=== PATIENT | female | born 1965 | race Caucasian/White ===

== ENCOUNTER 2022-10-26 09:02 | Outpatient (OUT) | payer OTHER, SELFPAY ==
--- NOTE | 2022-10-26 09:06 | MM_ITS ---
Patient: FLAKITO KHAN Exam Date: 10/26/2022 : 1965 Gender:F Ordering : DR Viraj Martinez D.O. Admission #: [id number] Family : Order #: [id number] CLICK HERE TO VIEW EXAM RADIOLOGY REPORT PROCEDURE: MM TOMOSYNTHESIS SCREENING BI COMPARISON: None. INDICATIONS: Screening Calculator Name NCI Breast Cancer Risk Assessment Tool 5 Year Breast Cancer Risk 1.30% Lifetime Breast Cancer Risk 8.00% Personal Breast Cancer No Personal Ovarian Cancer No Treatments None Family Cancers None LOCATION: The [facility] BREAST COMPOSITION: Almost entirely fatty. FINDINGS: DIAGNOSTIC CATEGORY 2--BENIGN FINDING: RIGHT BREAST: No significant suspicious finding. Benign-appearing lymph node present. LEFT BREAST: No significant suspicious finding. RECOMMENDATIONS: ROUTINE MAMMOGRAM AND CLINICAL EVALUATION IN 12 MONTHS. PLEASE NOTE: A NORMAL MAMMOGRAM DOES NOT EXCLUDE THE POSSIBILITY OF BREAST CANCER. A CLINICALLY SUSPICIOUS PALPABLE LUMP SHOULD BE BIOPSIED. Dictated by: Lavelle Cowan M.D. on 10/28/2022 at 08:56 Approved by: Lavelle Cowan M.D. on 10/28/2022 at 08:59
== END 2022-10-26 09:03 | disposition home or self-care (01) ==
LOC: MAMMO 09:02
PROVIDERS: PCP Internal Medicine; Visit Provider Internal Medicine
DX: Z12.31 Encounter for screening mammogram for malignant neoplasm of breast (principal)
CPT/HCPCS: 77063; 77067

== ENCOUNTER 2023-09-08 20:48 | Emergency (ER) | payer OTHER, SELFPAY ==
[2023-09-08] VITALS (22 sets, daily range): BP systolic 101–149; BP diastolic 78–97; PULSE 105–130; TEMP 37.4; O2SAT 94–99; BMI 34.9
--- NOTE | 2023-09-08 21:00 | CT_ITS ---
The [address] [address] Patient Name: FLAKITO KHAN MRN: [id number] date: 1965 Sex: F Assigned Patient Location: ED.MAIN Current Patient Location: Accession/Order Number: [id number] Exam Date: 09/08/2023 21:40 Report Date: 09/08/2023 23:37 At the request of: KANDIS SANCHEZ Procedure: CT head/brain wo con INDICATION: 57 years old; Female. Headache. Vomiting. TECHNIQUE: CT Head (ax/cor/sag reformats). Ionizing radiation dose reduced via iterative reconstruction/FBP blend and body size kV/mA adjustment. Comparison: None FINDINGS: POSTOPERATIVE CHANGES: None. BRAIN PARENCHYMA: No intraparenchymal or extra-axial hemorrhage. No mass effect. No midline shift or herniation. Normal koenig/white differentiation. VENTRICLES/EXTRA-AXIAL SPACES: Normal for patient's age. SINUSES/MASTOIDS: Sinuses are clear although the maxillary sinuses are not completely included. Nasal septal deviation to the right with spur formation. Mastoids and middle ears are clear. MSK: No displaced or depressed calvarial fracture. Mild extracranial soft tissue swelling in the right frontal region. OTHER: No hyperdense intraluminal thrombus. CT/CT head/brain wo con IMPRESSION: 1. No acute intracranial abnormality. No hemorrhage or mass effect. Electronically authenticated by: KELLY VALLE Date: 09/08/2023 23:37
--- NOTE | 2023-09-08 21:00 | ECG_ITS ---
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
--- NOTE | 2023-09-08 21:00 | XR_ITS ---
The [address] [address] Patient Name: FLAKITO KHAN MRN: [id number] date: 1965 Sex: F Assigned Patient Location: ER Current Patient Location: ER Accession/Order Number: [id number] Exam Date: 09/08/2023 22:40 Report Date: 09/08/2023 23:46 At the request of: KANDIS SANCHEZ Procedure: XR chest 1V EXAM: XR chest 1V HISTORY: Vomiting, weakness. COMPARISON: None. TECHNIQUE: AP upright portable. FINDINGS: Lordotic positioning. Diminished lung volumes. Mild elevation of the right hemidiaphragm. Allowing for diminished lung volumes and lordotic positioning, which accentuates the cardiomediastinal contour, the heart and pulmonary vasculature are within normal limits. The costophrenic angles are clear. XR/XR chest 1V IMPRESSION: Diminished lung volumes. Electronically authenticated by: LOPEZ QUISPE Date: 09/08/2023 23:46
--- NOTE | 2023-09-08 21:02 | ED.GENADUL1 ---
Documented by User: ANAND Yang 09/08/23 21:37 HPI HPI - General Adult General Chief complaint: Nausea/Vomiting/Diarrhea Stated complaint: General Weakness Time Seen by Provider: 09/08/23 20:51 Source: patient Mode of arrival: Wheelchair Limitations: no limitations History of Present Illness HPI narrative: Patient is a 57-year-old female who presents to the emergency department from home for the evaluation of general weakness and not feeling well over the last week. She reports a history of type 2 diabetes controlled with medication orally, she does not use insulin. She has no other major medical problems. She has not had any objective fevers. She reports headaches associated with vomiting. She states she has had loose stool when she is forcefully vomiting but has had no persistent diarrhea or urinary symptoms. She has no chest pain. She states she is short of breath when she gets up and moves around as she feels generally weak and has not been eating and drinking well this week. She denies chest pain, abdominal pain. No medications taken prior to arrival. She has no significant cough, congestion. She reports some generalized bodyaches. No sick contacts in the home. Patient also reports today she noticed numbness in the palm of her right hand. Related Data Home Medications ?Medication ?Instructions ?Recorded ?Confirmed glimepiride 1 mg tablet 1 mg PO DAILY 09/08/23 09/08/23 Allergies Allergy/AdvReac Type Severity Reaction Status Date / Time No Known Drug Allergies Allergy Verified 09/08/23 20:55 Opioid HPI Opioid Management Most Recent Opioid Data: No Data to Display Review of Systems ROS Constitutional Denies: fever or chills Eyes Denies: change in vision Ears, nose, mouth, and throat Denies: throat pain Cardiovascular Denies: chest pain Respiratory Reports: shortness of breath; Denies: cough Gastrointestinal Reports: nausea and vomiting; Denies: abdominal pain Musculoskeletal Denies: back pain or neck pain Integumentary/Breast Denies: rash Neurological Reports: headache and numbness in extremities; Denies: dizziness Hematologic/Lymphatic Denies: easy bruising or easy bleeding Exam Narrative Exam Narrative: Gen.: Awake, alert, in no distress Head: Normocephalic, atraumatic ENT: Moist mucous membranes Respiratory: No respiratory distress, lungs clear bilaterally Cardio: Regular rate and rhythm Gastrointestinal: Abdomen is soft, nondistended and nontender to palpation Extremities: Moves extremities equally, no injuries noted; Normal inspector open die strength in the bilateral hands, normal biceps tendon strength bilaterally in the upper extremities. Psych: Normal mood and affect Neuro: No focal neuro deficit; No unilateral weakness, clear speech, awake and alert and oriented. Skin: Warm, dry, intact Constitutional Vital Signs, click to edit/add: Last Vital Signs Temp 99.3 F 09/08/23 20:51 Pulse 109 H 09/08/23 23:50 Resp 24 H 09/08/23 23:50 BP 116/78 09/08/23 23:30 Pulse Ox 95 09/08/23 23:50 O2 Del Method Room Air 09/08/23 20:51 Course Vital Signs Vital signs: Vital Signs Temperature 99.3 F 09/08/23 20:51 Pulse Rate 120 H 09/08/23 20:51 Respiratory Rate 18 09/08/23 20:51 Blood Pressure 149/97 H 09/08/23 20:51 Pulse Oximetry 98 09/08/23 20:51 Oxygen Delivery Method Room Air 09/08/23 20:51 Temperature 99.3 F 09/08/23 20:51 Pulse Rate 109 H 09/08/23 23:50 Respiratory Rate 24 H 09/08/23 23:50 Blood Pressure 116/78 09/08/23 23:30 Pulse Oximetry 95 09/08/23 23:50 Oxygen Delivery Method Room Air 09/08/23 20:51 Medical Decision Making MDM Narrative Medical decision making narrative: 2136: Sepsis orders were obtained for the patient, she was given IV fluids for tachycardia, Zofran for vomiting. She was ordered to have a CT of the head and chest x-ray in addition to COVID testing, blood cultures. Her CBC resulted showing a white blood cell count of 27.8. CT of the abdomen pelvis will be added to rule out abdominal pathology causing the vomiting and the leukocytosis. Case is turned over to attending physician at this time for disposition. SHARED APC VISIT, PHYSICIAN ATTESTATION: [id number] I performed a substantive part of the MDM during the patient?s E/M visit. I personally evaluated and examined the patient. I personally made or approved the documented management plan and acknowledge its risk of complications. Medical Records Medical records reviewed: Yes I reviewed the patient's medical records Lab Data Lab results reviewed: Yes I reviewed the patient's lab results Labs: Lab Results 09/08/23 09/09/23 Range/Units 21:10 00:20 WBC 27.8 H (4.0-11.0) 10^3/uL RBC 5.11 (4.20-5.40) 10^6/uL Hgb 13.8 (12.0-16.0) g/dL Hct 42.6 (36.0-48.0) % MCV 83.4 (81.0-99.0) fL MCH 27.0 (26.7-34.0) pg MCHC 32.4 (29.9-35.2) g/dL RDW 12.2 (11.0-15.0) % Plt Count 463 H (150-450) 10^3/uL MPV 11.0 (9.5-13.5) fL Seg Neuts % (Manual) 85.0 Band Neutrophils % 1.0 (0-5) % Lymphocytes % (Manual) 6.0 L (20.5-60.0) % Atypical Lymphs % (Man) 2.0 % Monocytes % (Manual) 6.0 (1.7-12.0) % Eosinophils % (Manual) 0.0 L (0.9-7.0) % Basophils % (Manual) 0.0 L (0.2-2.0) % Neutrophils # (Manual) 23.63 H (1.4-6.5) 10^3/uL Band Neutrophils # 0.3 (0.0-0.3) 10^3/uL Lymphocytes # (Manual) 1.66 (1.20-3.80) 10^3/uL Abs Atypical Lymphs Man 0.55 Monocytes # (Manual) 1.66 H (0.30-0.80) 10^3/uL Eosinophils # (Manual) 0.00 (0.00-0.70) 10^3/uL Basophils # (Manual) 0.00 (0.00-0.10) 10^3/uL D-Dimer 1.69 H* (<=0.59) mg/L FEU VBG pH 7.427 (7.330-7.430) VBG pCO2 33.4 L (40.0-52.0) mmHg Sodium 128 L (136-145) mmol/L Potassium 4.0 (3.5-5.1) mmol/L Chloride 92 L (98-107) mmol/L Carbon Dioxide 21.5 (21.0-32.0) mmol/L Anion Gap 18.5 BUN 13.0 (7.0-18.0) mg/dL Creatinine 1.09 H (0.55-1.02) mg/dL Est GFR ( Amer) >60 (>=60) Est GFR (Non-Af Amer) 52 L (>=60) BUN/Creatinine Ratio 11.9 Glucose 387 H (74-106) mg/dL Lactate 4.2 H* 1.7 (0.4-2.0) mmol/L Calcium 9.6 (8.5-10.1) mg/dL Total Bilirubin 1.8 H (0.2-1.0) mg/dL AST 20 (15-37) U/L ALT 23 (14-59) U/L Alkaline Phosphatase 136 H (46-116) U/L Troponin I High Sens <4.0 L (4.0-51.3) pg/mL Total Protein 7.8 (6.4-8.2) g/dL Albumin 2.3 L (3.4-5.0) g/dL Globulin 5.5 g/dL Albumin/Globulin Ratio 0.4 Procalcitonin 0.84 H (0.00-0.50) ng/mL SARS-CoV-2 Ag (CV2AG) Negative (NEGATIVE) ECG Data Attestation: I personally reviewed and interpreted this ECG as follows: (Sinus tachycardia at a rate of 125, no acute ST elevation. T wave inversion in lead III, no ectopy. EKG reviewed by attending physician) Discharge Plan Discharge Chief Complaint: Nausea/Vomiting/Diarrhea Clinical Impression: Necrotizing fasciitis Patient Disposition: [facility] Time of Disposition Decision: 00:47 Discharge location: [facility] Condition: Serious Documented by User: Jeni Willis MD 09/09/23 01:44 HPI HPI - General Adult General Chief complaint: Nausea/Vomiting/Diarrhea Stated complaint: General Weakness Time Seen by Provider: 09/08/23 20:51 Related Data Home Medications ?Medication ?Instructions ?Recorded ?Confirmed glimepiride 1 mg tablet 1 mg PO DAILY 09/08/23 09/08/23 Allergies Allergy/AdvReac Type Severity Reaction Status Date / Time No Known Drug Allergies Allergy Verified 09/08/23 20:55 Opioid HPI Opioid Management Most Recent Opioid Data: No Data to Display Exam Constitutional Vital Signs, click to edit/add: Last Vital Signs Temp 99.3 F 09/08/23 20:51 Pulse 109 H 09/08/23 23:50 Resp 24 H 09/08/23 23:50 BP 116/78 09/08/23 23:30 Pulse Ox 95 09/08/23 23:50 O2 Del Method Room Air 09/08/23 20:51 Course Vital Signs Vital signs: Vital Signs Temperature 99.3 F 09/08/23 20:51 Pulse Rate 120 H 09/08/23 20:51 Respiratory Rate 18 09/08/23 20:51 Blood Pressure 149/97 H 09/08/23 20:51 Pulse Oximetry 98 09/08/23 20:51 Oxygen Delivery Method Room Air 09/08/23 20:51 Temperature 99.3 F 09/08/23 20:51 Pulse Rate 109 H 09/08/23 23:50 Respiratory Rate 24 H 09/08/23 23:50 Blood Pressure 116/78 09/08/23 23:30 Pulse Oximetry 95 09/08/23 23:50 Oxygen Delivery Method Room Air 09/08/23 20:51 Medical Decision Making MDM Narrative Medical decision making narrative: 2136: Sepsis orders were obtained for the patient, she was given IV fluids for tachycardia, Zofran for vomiting. She was ordered to have a CT of the head and chest x-ray in addition to COVID testing, blood cultures. Her CBC resulted showing a white blood cell count of 27.8. CT of the abdomen pelvis will be added to rule out abdominal pathology causing the vomiting and the leukocytosis. Case is turned over to attending physician at this time for disposition. SHARED APC VISIT, PHYSICIAN ATTESTATION: [id number] I performed a substantive part of the MDM during the patient?s E/M visit. I personally evaluated and examined the patient. I personally made or approved the documented management plan and acknowledge its risk of complications. This patient was seen and evaluated in conjunction with the physician housekeeper/laundry assistant. Please refer to her full H&P. Patient was seen and evaluated by myself. She states she has been having nausea with some vomiting without significant abdominal pain. I discussed the results of her labs with her and told her that she has a markedly elevated white count. She then told me that that is probably because she has a boil and points to her right inguinal area. At that point I had the patient remove her pants and found that she has a large red indurated tender area from the right inguinal area to the right mid medial thigh area that measures approximately 15 cm x 19 cm. She states that she has had this for approximately 1 week. She states she has had it before and it comes and goes. She states she has been putting a Band-Aid over it and it has been draining some koenig material. I was unable to express any drainage from the area to culture. The indurated area does not include her labia and does not involve the rectum. CT scan of the chest abdomen pelvis was ordered. CT scan of the chest shows mosaic attenuation to the lungs which can be seen in small airways disease. Cholelithiasis without evidence of acute inflammation hepatosplenomegaly with hepatic steatosis prominent enlarged portacaval lymph nodes and prominent enlarged right inguinal lymph nodes as well as air in the soft tissues of the medial right thigh with surrounding edema and skin thickening. The area extends into the right gracilis muscles findings are in keeping with a necrotizing infection. CT scan of the brain was negative for acute findings. Chest x-ray was also normal. Case was discussed with Gen Izabel Conner at [facility] and she will be admitted to the hospitalist service with surgery consult tomorrow am. Case discussed with WOOD DOWEL MACHINE OPERATOR/Hospitalist and she is accepted for transfer to the service of Dr Aguero. Critical care time 45 minutes The [address] [address] XRay Report Signed Patient: FLAKITO KHAN MR#: [id number] : 1965 Acct:[id number] Age/Sex: 57 / F ADM Date: 09/08/23 Loc: ER Attending Dr: Ordering Physician: Kandis Sanchez Date of Service: 09/08/23 Procedure(s): XR chest 1V Accession Number(s): [id number] cc: Viraj Martinez D.O.; Kandis Sanchez~ The [address] [id number] Patient Name: FLAKITO KHAN MRN: [id number] date: 1965 Sex: F Assigned Patient Location: ER Current Patient Location: ER Accession/Order Number: [id number] Exam Date: 09/08/2023 22:40 Report Date: 09/08/2023 23:46 At the request of: KANDIS SANCHEZ Procedure: XR chest 1V EXAM: XR chest 1V HISTORY: Vomiting, weakness. COMPARISON: None. TECHNIQUE: AP upright portable. FINDINGS: Lordotic positioning. Diminished lung volumes. Mild elevation of the right hemidiaphragm. Allowing for diminished lung volumes and lordotic positioning, which accentuates the cardiomediastinal contour, the heart and pulmonary vasculature are within normal limits. The costophrenic angles are clear. XR/XR chest 1V IMPRESSION: Diminished lung volumes. Electronically authenticated by: LOPEZ QUISPE Date: 09/08/2023 23:46 [place] [address] CT Scan Report Signed Patient: FLAKITO KHAN MR#: [id number] : 1965 Acct:[id number] Age/Sex: 57 / F ADM Date: 09/08/23 Loc: ER Attending Dr: Ordering Physician: Kandis Sanchez Date of Service: 09/08/23 Procedure(s): CT head/brain wo con Accession Number(s): [id number] cc: Viraj Martinez D.O.~ The [address] [address] Patient Name: FLAKITO KHAN MRN: [id number] date: 1965 Sex: F Assigned Patient Location: ED.MAIN Current Patient Location: ER Accession/Order Number: [id number] Exam Date: 09/08/2023 21:40 Report Date: 09/08/2023 23:37 At the request of: KANDIS SANCHEZ Procedure: CT head/brain wo con INDICATION: 57 years old; Female. Headache. Vomiting. TECHNIQUE: CT Head (ax/cor/sag reformats). Ionizing radiation dose reduced via iterative reconstruction/FBP blend and body size kV/mA adjustment. Comparison: None FINDINGS: POSTOPERATIVE CHANGES: None. BRAIN PARENCHYMA: No intraparenchymal or extra-axial hemorrhage. No mass effect. No midline shift or herniation. Normal koenig/white differentiation. VENTRICLES/EXTRA-AXIAL SPACES: Normal for patient's age. SINUSES/MASTOIDS: Sinuses are clear although the maxillary sinuses are not completely included. Nasal septal deviation to the right with spur formation. Mastoids and middle ears are clear. MSK: No displaced or depressed calvarial fracture. Mild extracranial soft tissue swelling in the right frontal region. OTHER: No hyperdense intraluminal thrombus. CT/CT head/brain wo con IMPRESSION: 1. No acute intracranial abnormality. No hemorrhage or mass effect. Electronically authenticated by: KELLY VALLE Date: 09/08/2023 23:37 [place] [address] CT Scan Report Signed Patient: FLAKITO KHAN MR#: [id number] : 1965 Acct:[id number] Age/Sex: 57 / F ADM Date: 09/08/23 Loc: ER Attending Dr: Ordering Physician: Kandis Sanchez Date of Service: 09/08/23 Procedure(s): CT abdomen pelvis w con Accession Number(s): [id number] cc: Viraj Martinez D.O.~ The [place] [id number] Patient Name: FLAKITO KHAN MRN: [id number] date: 1965 Sex: F Assigned Patient Location: ER Current Patient Location: ER Accession/Order Number: [id number] Exam Date: 09/08/2023 21:40 Report Date: 09/08/2023 23:51 At the request of: KANDIS SANCHEZ Procedure: CT abdomen pelvis w con EXAM: CT angio chest, CT abdomen pelvis w con HISTORY: SOB, elevated d dimer COMPARISON: None. TECHNIQUE: Axial CT angiographic images through the chest were obtained after the intravenous administration of contrast. Coronal and sagittal reformats were obtained. Axial CT images through the abdomen and pelvis were then obtained with coronal and sagittal reformats. Dose reduction techniques were achieved by using automated exposure control and/or adjustment of mA and/or kV according to patient size and/or use of iterative reconstruction technique. FINDINGS: Chest: There is a mosaic attenuation to the lungs. No evidence of a pulmonary embolism is seen though the examination is not well-timed for evaluation of pulmonary embolus. There is no axillary, mediastinal, or hilar lymphadenopathy. There is no pleural or pericardial fluid. The heart size is normal. Abdomen: The liver and spleen enhance homogeneously without focal lesion. There is no intra or extrahepatic biliary duct dilatation. There is cholelithiasis without evidence of acute inflammation. There is hepatic steatosis. There is hepatomegaly with the liver measuring up to 23.1 cm at the right midclavicular line. The spleen is enlarged measuring up to 15.7 cm. The pancreas, adrenal glands, kidneys, and bowel loops, including the appendix, are unremarkable. There are prominent and enlarged portacaval lymph nodes measuring up to 1.3 cm in short axis diameter (series 5, image 74). Pelvis: The bladder and rectum are unremarkable. The uterus is present. The ovaries appear within normal limits by CT. There are prominent and enlarged right inguinal lymph nodes measuring up to 1.0 cm in short axis diameter (series 5, image 194). Bone windows show no aggressive osseous lesions. There is mild atherosclerotic disease. Air is seen within the soft tissues of the medial right thigh with surrounding edema and skin thickening. There is extension of the air into the right gracilis muscle which is asymmetrically thickened. CT/CT abdomen pelvis w con IMPRESSION: 1. Air within the soft tissues of the medial right thigh with surrounding edema and skin thickening. Air extends into the right gracilis muscle. These findings are likely in keeping with a necrotizing infection. 2. Mosaic attenuation to the lungs which can be seen with small airways disease. 3. Cholelithiasis without evidence of acute inflammation. 4. Hepatosplenomegaly with hepatic steatosis. 5. Prominent and enlarged portal caval lymph nodes, likely reactive. 6. Prominent and enlarged right inguinal lymph nodes, also likely reactive. Electronically authenticated by: Lucia MEJIAS Date: 09/08/2023 23:51 Lab Data Lab results reviewed: Yes I reviewed the patient's lab results Labs: Lab Results 09/08/23 09/09/23 Range/Units 21:10 00:20 WBC 27.8 H (4.0-11.0) 10^3/uL RBC 5.11 (4.20-5.40) 10^6/uL Hgb 13.8 (12.0-16.0) g/dL Hct 42.6 (36.0-48.0) % MCV 83.4 (81.0-99.0) fL MCH 27.0 (26.7-34.0) pg MCHC 32.4 (29.9-35.2) g/dL RDW 12.2 (11.0-15.0) % Plt Count 463 H (150-450) 10^3/uL MPV 11.0 (9.5-13.5) fL Seg Neuts % (Manual) 85.0 Band Neutrophils % 1.0 (0-5) % Lymphocytes % (Manual) 6.0 L (20.5-60.0) % Atypical Lymphs % (Man) 2.0 % Monocytes % (Manual) 6.0 (1.7-12.0) % Eosinophils % (Manual) 0.0 L (0.9-7.0) % Basophils % (Manual) 0.0 L (0.2-2.0) % Neutrophils # (Manual) 23.63 H (1.4-6.5) 10^3/uL Band Neutrophils # 0.3 (0.0-0.3) 10^3/uL Lymphocytes # (Manual) 1.66 (1.20-3.80) 10^3/uL Abs Atypical Lymphs Man 0.55 Monocytes # (Manual) 1.66 H (0.30-0.80) 10^3/uL Eosinophils # (Manual) 0.00 (0.00-0.70) 10^3/uL Basophils # (Manual) 0.00 (0.00-0.10) 10^3/uL D-Dimer 1.69 H* (<=0.59) mg/L FEU VBG pH 7.427 (7.330-7.430) VBG pCO2 33.4 L (40.0-52.0) mmHg Sodium 128 L (136-145) mmol/L Potassium 4.0 (3.5-5.1) mmol/L Chloride 92 L (98-107) mmol/L Carbon Dioxide 21.5 (21.0-32.0) mmol/L Anion Gap 18.5 BUN 13.0 (7.0-18.0) mg/dL Creatinine 1.09 H (0.55-1.02) mg/dL Est GFR ( Amer) >60 (>=60) Est GFR (Non-Af Amer) 52 L (>=60) BUN/Creatinine Ratio 11.9 Glucose 387 H (74-106) mg/dL Lactate 4.2 H* 1.7 (0.4-2.0) mmol/L Calcium 9.6 (8.5-10.1) mg/dL Total Bilirubin 1.8 H (0.2-1.0) mg/dL AST 20 (15-37) U/L ALT 23 (14-59) U/L Alkaline Phosphatase 136 H (46-116) U/L Troponin I High Sens <4.0 L (4.0-51.3) pg/mL Total Protein 7.8 (6.4-8.2) g/dL Albumin 2.3 L (3.4-5.0) g/dL Globulin 5.5 g/dL Albumin/Globulin Ratio 0.4 Procalcitonin 0.84 H (0.00-0.50) ng/mL SARS-CoV-2 Ag (CV2AG) Negative (NEGATIVE) Discharge Plan Discharge Chief Complaint: Nausea/Vomiting/Diarrhea Clinical Impression: Necrotizing fasciitis Patient Disposition: [facility] Time of Disposition Decision: 00:47 Discharge location: [facility] Condition: Serious
[2023-09-08] MEDS: ONDANSETRON PF 4 MG/2 ML VIAL IV (21:11)
[2023-09-08] MEDS: 0.9 % SODIUM CHLORIDE 1,000 ML 1000 ML IV (21:11)
[2023-09-08 21:26] LABS: PCO2 VBG 33.4 mmHg (40.0-52.0); pH VBG 7.427 (7.330-7.430)
[2023-09-08 21:28] LABS: Hematocrit 42.6 % (36.0-48.0); Hemoglobin 13.8 g/dL (12.0-16.0); Mean Corpuscular HGB Conc 32.4 g/dL (29.9-35.2); Mean Corpuscular Volume 83.4 fL (81.0-99.0); Platelet Count 463 10^3/uL (150-450); Red Blood Count 5.11 10^6/uL (4.20-5.40); Red Cell Distribution Width 12.2 % (11.0-15.0); White Blood Count 27.8 10^3/uL (4.0-11.0)
--- NOTE | 2023-09-08 21:35 | CT_ITS ---
The [address] [address] Patient Name: FLAKITO KHAN MRN: [id number] date: 1965 Sex: F Assigned Patient Location: ER Current Patient Location: Accession/Order Number: [id number] Exam Date: 09/08/2023 21:40 Report Date: 09/08/2023 23:51 At the request of: KANDIS SANCHEZ Procedure: CT abdomen pelvis w con EXAM: CT angio chest, CT abdomen pelvis w con HISTORY: SOB, elevated d dimer COMPARISON: None. TECHNIQUE: Axial CT angiographic images through the chest were obtained after the intravenous administration of contrast. Coronal and sagittal reformats were obtained. Axial CT images through the abdomen and pelvis were then obtained with coronal and sagittal reformats. Dose reduction techniques were achieved by using automated exposure control and/or adjustment of mA and/or kV according to patient size and/or use of iterative reconstruction technique. FINDINGS: Chest: There is a mosaic attenuation to the lungs. No evidence of a pulmonary embolism is seen though the examination is not well-timed for evaluation of pulmonary embolus. There is no axillary, mediastinal, or hilar lymphadenopathy. There is no pleural or pericardial fluid. The heart size is normal. Abdomen: The liver and spleen enhance homogeneously without focal lesion. There is no intra or extrahepatic biliary duct dilatation. There is cholelithiasis without evidence of acute inflammation. There is hepatic steatosis. There is hepatomegaly with the liver measuring up to 23.1 cm at the right midclavicular line. The spleen is enlarged measuring up to 15.7 cm. The pancreas, adrenal glands, kidneys, and bowel loops, including the appendix, are unremarkable. There are prominent and enlarged portacaval lymph nodes measuring up to 1.3 cm in short axis diameter (series 5, image 74). Pelvis: The bladder and rectum are unremarkable. The uterus is present. The ovaries appear within normal limits by CT. There are prominent and enlarged right inguinal lymph nodes measuring up to 1.0 cm in short axis diameter (series 5, image 194). Bone windows show no aggressive osseous lesions. There is mild atherosclerotic disease. Air is seen within the soft tissues of the medial right thigh with surrounding edema and skin thickening. There is extension of the air into the right gracilis muscle which is asymmetrically thickened. CT/CT abdomen pelvis w con IMPRESSION: 1. Air within the soft tissues of the medial right thigh with surrounding edema and skin thickening. Air extends into the right gracilis muscle. These findings are likely in keeping with a necrotizing infection. 2. Mosaic attenuation to the lungs which can be seen with small airways disease. 3. Cholelithiasis without evidence of acute inflammation. 4. Hepatosplenomegaly with hepatic steatosis. 5. Prominent and enlarged portal caval lymph nodes, likely reactive. 6. Prominent and enlarged right inguinal lymph nodes, also likely reactive. Electronically authenticated by: Lucia MEJIAS Date: 09/08/2023 23:51
[2023-09-08 21:37] LABS: Internal Control Within Normal Limits; SARS-CoV-2 Ag NEGATIVE (NEGATIVE)
[2023-09-08 21:45] LABS: Atypical Lymphocytes Abs Man 0.55; Band Neutrophils Absolute 0.3 10^3/uL (0.0-0.3); Lymphocytes Absolute Manual 1.66 10^3/uL (1.20-3.80); Monocytes Absolute Manual 1.66 10^3/uL (0.30-0.80); Segmented Neut Absolute Manual 23.63 10^3/uL (1.4-6.5)
[2023-09-08 21:49] LABS: Alanine Aminotransferase 23 U/L (14-59); Albumin Globulin Ratio 0.4; Albumin Level 2.3 g/dL (3.4-5.0); Alkaline Phosphatase 136 U/L (46-116); Anion Gap 18.5; Aspartate Amino Transferase 20 U/L (15-37); BUN Creatinine Ratio 11.9; Bilirubin Total 1.8 mg/dL (0.2-1.0); Calcium 9.6 mg/dL (8.5-10.1); Carbon Dioxide 21.5 mmol/L (21.0-32.0); Chloride 92 mmol/L (98-107); Estimated GFR (African America >60 (>=60); Estimated GFR (Non-African Ame 52 (>=60); Globulin 5.5 g/dL; Glucose 387 mg/dL (74-106); Sodium 128 mmol/L (136-145); Total Protein 7.8 g/dL (6.4-8.2); Troponin I High Sensitivity <4.0 pg/mL (4.0-51.3)
[2023-09-08 21:54] LABS: Lactate/Lactic Acid 4.2 mmol/L (0.4-2.0)
[2023-09-08 21:56] LABS: PROCALCITONIN 0.84 ng/mL (0.00-0.50)
[2023-09-08 22:20] LABS: D Dimer 1.69 mg/L FEU (<=0.59)
--- NOTE | 2023-09-08 22:23 | CT_ITS ---
[address] [address] Patient Name: FLAKITO KHAN MRN: [id number] date: 1965 Sex: F Assigned Patient Location: ER Current Patient Location: ER Accession/Order Number: [id number] Exam Date: 09/08/2023 21:40 Report Date: 09/08/2023 23:51 At the request of: SAGAR MARKER Procedure: CT angio chest EXAM: CT angio chest, CT abdomen pelvis w con HISTORY: SOB, elevated d dimer COMPARISON: None. TECHNIQUE: Axial CT angiographic images through the chest were obtained after the intravenous administration of contrast. Coronal and sagittal reformats were obtained. Axial CT images through the abdomen and pelvis were then obtained with coronal and sagittal reformats. Dose reduction techniques were achieved by using automated exposure control and/or adjustment of mA and/or kV according to patient size and/or use of iterative reconstruction technique. FINDINGS: Chest: There is a mosaic attenuation to the lungs. No evidence of a pulmonary embolism is seen though the examination is not well-timed for evaluation of pulmonary embolus. There is no axillary, mediastinal, or hilar lymphadenopathy. There is no pleural or pericardial fluid. The heart size is normal. Abdomen: The liver and spleen enhance homogeneously without focal lesion. There is no intra or extrahepatic biliary duct dilatation. There is cholelithiasis without evidence of acute inflammation. There is hepatic steatosis. There is hepatomegaly with the liver measuring up to 23.1 cm at the right midclavicular line. The spleen is enlarged measuring up to 15.7 cm. The pancreas, adrenal glands, kidneys, and bowel loops, including the appendix, are unremarkable. There are prominent and enlarged portacaval lymph nodes measuring up to 1.3 cm in short axis diameter (series 5, image 74). Pelvis: The bladder and rectum are unremarkable. The uterus is present. The ovaries appear within normal limits by CT. There are prominent and enlarged right inguinal lymph nodes measuring up to 1.0 cm in short axis diameter (series 5, image 194). Bone windows show no aggressive osseous lesions. There is mild atherosclerotic disease. Air is seen within the soft tissues of the medial right thigh with surrounding edema and skin thickening. There is extension of the air into the right gracilis muscle which is asymmetrically thickened. CT/CT angio chest IMPRESSION: 1. Air within the soft tissues of the medial right thigh with surrounding edema and skin thickening. Air extends into the right gracilis muscle. These findings are likely in keeping with a necrotizing infection. 2. Mosaic attenuation to the lungs which can be seen with small airways disease. 3. Cholelithiasis without evidence of acute inflammation. 4. Hepatosplenomegaly with hepatic steatosis. 5. Prominent and enlarged portal caval lymph nodes, likely reactive. 6. Prominent and enlarged right inguinal lymph nodes, also likely reactive. Electronically authenticated by: Lucia MEJIAS Date: 09/08/2023 23:51
[2023-09-08] MEDS: PIPERACILLIN SODIUM/TAZOBACTAM 3.375 GM in 0.9 % SODIUM CHLORIDE 50 ML IV (22:29)
[2023-09-08] MEDS: VANCOMYCIN HCL 1,500 MG in 0.9 % SODIUM CHLORIDE 500 ML 250 MG IV (23:50)
[2023-09-09] VITALS: BP 122/78
[2023-09-09] MEDS: 0.9 % SODIUM CHLORIDE 1,000 ML 1000 ML IV (00:26)
[2023-09-09 00:30] VITALS: BP 125/79
[2023-09-09 00:47] LABS: Lactate/Lactic Acid 1.7 mmol/L (0.4-2.0)
[2023-09-09 01:01] VITALS: BP 103/75
[2023-09-09 01:31] VITALS: BP 109/66
[2023-09-09] MEDS: ONDANSETRON PF 4 MG/2 ML VIAL IV (02:06)
== END 2023-09-09 02:10 | disposition short-term general hospital (02) ==
PROVIDERS: Physician Assistant; Emergency Provider Emergency Medicine; PCP Internal Medicine
DX: M72.6 Necrotizing fasciitis (principal); E11.9 Type 2 diabetes mellitus without complications; Z79.84 Long term (current) use of oral hypoglycemic drugs
CPT/HCPCS: 36415; 70450; 71045; 71275; 74177; 80053; 82800; 83605; 84145; 84484; 85007; 85027; 85378; 87040; 87811; 93005; 96361; 96365; 96366; 96368; 96375; 96376; 99285; J2405; J2543; J3370; Q9967

== ENCOUNTER 2023-09-18 17:39 | Emergency (ER) | payer OTHER, SELFPAY ==
[2023-09-18 17:44] VITALS: BP 145/110; PULSE 100; O2SAT 99; BMI 38.7
--- OUTSIDE RECORDS SUMMARY | 2023-09-18 17:47 | XMS_ITS | CCD ---
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 Name Role Phone ARINA, DR MARTINEZ Attending Unavailable ARINA, DR MARTINEZ Consulting Unavailable ARINA, DR MARTINEZ Primary Care Unavailable ARINA, DR MARTINEZ Admitting Unavailable Viraj Santa Unavailable JORDAN CARTER Admitting Unavailable VIRAJ SANTA Primary Care Unavailable JER ENGLE Attending Unavailable BETH GREENE Consulting Unavailable MARKERSAGAR Referring Unavailable LIGIA ARAUJO Consulting Unavaila DAVIE Lion Consulting Unavailable Allergies Allergy Classification Reported Allergen(s) Allergy Type Date of Onset Reaction(s) Facility (2 sources) patient allergy list reviewed by nurse or physicia Propensity to adverse reactions 9 Comment:Done [facility] Other Medications Current Medications Medication Drug Class(es) Dates Sig (Normalized) Sig (Original) glimepiride 1 mg oral tablet (2 sources) Sulfonylurea Start: 10-20-2022 take 1 tablet by mouth every twenty-four hours Glimepiride 1 MG 1 tablet with breakfast or the first main meal of the day Orally Once a day for 30 days Oct, Active losartan potassium 25 mg oral tablet (4 sources) Angiotensin 2 Receptor Mimi take 1 tablet by mouth every twenty-four hours Losartan Potassium 25 MG 1 tablet Orally Once a day Active metFORMIN hydrochloride 1000 mg oral tablet (2 sources) Biguanide take 1 tablet by mouth every twelve hours metFORMIN HCl 1000 MG 1 tablet with a meal Orally twice a day Active metFORMIN hydrochloride 1000 mg / SITagliptin 50 mg oral tablet (2 sources) Biguanide, Dipeptidyl Peptidase 4 Inhibitor Start: 05-04-2022 take 1 tablet by mouth every twelve hours Janumet 50-1000 MG 1 tablet with meals Orally Twice a day for 30 day(s) Apr, Active SITagliptin 100 mg oral tablet (2 sources) Dipeptidyl Peptidase 4 Inhibitor Januvia 100 MG daily Orally Once a day for 30 days Active Problems Active Problems Problem Classification Problem Date Documented Date Episodic/Chronic Diabetes mellitus with complications (16 sources) Hyperglycemia due to type 2 diabetes mellitus; Translations: [Type 2 diabetes mellitus with hyperglycemia] Onset: 07-11-2018 Chronic Essential hypertension (10 sources) Essential hypertension; Translations: [Essential (primary) hypertension] Chronic Nutritional deficiencies (2 sources) Vitamin D deficiency; Translations: [Vitamin D deficiency, unspecified] Onset: 07-11-2018 Chronic Other connective tissue disease (1 source) Necrotizing fasciitis; Translations: [Necrotizing fasciitis] Onset: 09-09-2023 Episodic Other infections; including parasitic (1 source) Unspecified infectious disease; Translations: [Unspecified infectious disease] Onset: 09-10-2023 Episodic Other nutritional; endocrine; and metabolic disorders (8 sources) Morbid obesity; Translations: [Morbid (severe) obesity due to excess calories] Chronic Other nutritional; endocrine; and metabolic disorders (2 sources) Morbid (severe) obesity due to excess calories Chronic Other nutritional; endocrine; and metabolic disorders (4 sources) Body mass index 40+ - severely obese; Translations: [Body mass index (BMI) 50.0-59.9, adult] Onset: 05-11-2018 Chronic Other nutritional; endocrine; and metabolic disorders (2 sources) Severe obesity; Translations: [Morbid (severe) obesity due to excess calories] Chronic Other nutritional; endocrine; and metabolic disorders (1 source) Body mass index (BMI) 40.0-44.9, adult Chronic Other screening for suspected conditions (not mental disorders or infectious disease) (2 sources) Encounter for screening for malignant neoplasm of colon; Translations: [Encounter for screening mammogram for malignant neoplasm of breast] Episodic Spondylosis; intervertebral disc disorders; other back problems (2 sources) Lumbosacral spondylosis without myelopathy; Translations: [Spondylosis without myelopathy or radiculopathy, lumbar region] Onset: 07-11-2018 Chronic Unclassified (2 sources) CONTACT W/AND (SUSP) EXPOS COVID-19; Translations: [CONTACT W/AND (SUSP) EXPOS COVID-19] Onset: 11-07-2021 Unclassified (2 sources) 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); Translations: [Post COVID-19 condition, unspecified] Past or Other Problems Problem Classification Problem Date Documented Da te Episodic/Chronic Deficiency and other anemia (2 sources) Anemia; Translations: [Anemia, unspecified] Onset: 10-08-2018 Episodic Other upper respiratory infections (2 sources) Acute maxillary sinusitis; Translations: [Acute maxillary sinusitis, unspecified] Onset: 05-11-2018 Episodic Unclassified (1 source) CONTACT W/AND (SUSP) EXPOS COVID-19; Translations: [CONTACT W/AND (SUSP) EXPOS COVID-19] Onset: 11-05-2021 Unclassified (4 sources) Post-COVID syndrome; Translations: [Post-COVID syndrome] Viral infection (9 sources) COVID-19; Translations: [Disease caused by 2019-nCoV] Onset: 11-07-2021 Results Test Name Value Interpretation Reference Range Facility Basic Metabolic Profon 09-13 Anion gap [Moles/Vol] 8 mmol/L Low 12-06 [facility] Comment on above: Performed By: #### V NCR #### [facility] [place] [address] Land Department Head: Marcelino Millan MD BUN/CRE Ratio 9 Normal 12-09 [facility] Comment on above: Performed By: #### V NCR #### [facility] [place] [address] Land Department Head: Marcelino Millan MD Calcium [Mass/Vol] 8.4 mg/dL Low 8.6-10.4 [facility] Comment on above: Performed By: #### V NCR #### [facility] [place] [address] Land Department Head: Marcelino Millan MD Chloride [Moles/Vol] 109 mmol/L High 98-107 [facility] Comment on above: Performed By: #### V NCR #### [facility] [place] [address] Land Department Head: Marcelino Millan MD CO2 [Moles/Vol] 28 mmol/L Normal 20-31 [facility] Comment on above: Performed By: #### V NCR #### [facility] [address] [place] [address] Land Department Head: Marcelino Millan MD Creatinine [Mass/Vol] 0.7 mg/dL Normal 0.5-0.9 [facility] Comment on above: Performed By: #### V NCR #### [facility] [address] [place] [address] Land Department Head: Marcelino Millan MD GFR/1.73 sq M.predicted among non-blacks MDRD (S/P/Bld) [Vol rate/Area] mL/min/{1.73_m2} Normal >60 [facility] Comment on above: Result Comment: These results are not intended for use in patients <18 years of age. eGFR results are calculated without a race factor using the 2020 CKD-EPI equation. Careful clinical correlation is recommended, particularly when comparing to results calculated using previous equations. The CKD-EPI equation is less accurate in patients with extremes of muscle mass, extra-renal metabolism of creatine, excessive creatine ingestion, or following therapy that affects renal tubular secretion. Performed By: #### V NCR #### [facility] [address] [place] [address] Land Department Head: Marcelino Millan MD Glucose [Mass/Vol] 106 mg/dL High 70-99 [facility] Comment on above: Performed By: #### V NCR #### [facility] [address] [place] [address] Land Department Head: Marcelino Millan MD Potassium [Moles/Vol] 3.6 mmol/L Low 3.7-5.3 [facility] Comment on above: Performed By: #### V NCR #### [facility] [address] [place] [address] Land Department Head: Marcelino Millan MD Sodium [Moles/Vol] 145 mmol/L High 135-144 [facility] Comment on above: Performed By: #### V NCR #### [facility] [address] [place] [address] Land Department Head: Marcelino Millan MD Urea nitrogen [Mass/Vol] 6 mg/dL Normal 6-20 [facility] Comment on above: Performed By: #### V NCR #### [facility] [address] [place] [address] Land Department Head: Marcelino Millan MD C-Reactive Proteinon 024 CRP [Mass/Vol] 38.9 mg/L High 0.0-5.0 [facility] Comment on above: Performed By: #### V NCR #### [facility] [address] [place] [address] Land Department Head: Marcelino Millan MD Cult,Aerobe/Anaerobeon 09-13 Cult,Aerobe/Anaerobe Specimen Descriptio n .THIGH RIGHT SWAB Special Requests Site: Swab Direct Exam FEW NEUTROPHILS FEW GRAM POSITIVE COCCI IN PAIRS Culture STREPTOCOCCI, BETA HEMOLYTIC GROUP B LIGHT GROWTH Identification by MALDI-TOF FINEGOLDIA MAGNA LIGHT GROWTH PREVOTELLA SPECIES LIGHT GROWTH BETA LACTAMASE NEGATIVE Report Status FINAL 09/14/2023 Abnormal [facility] Comment on above: Performed By: #### A ANC ####[facility] [address] [place] [address] Lab Director: FABIANO [facility] [address] [place], [place] [id number] Lab Director: Franck Valencia MD Glucose,Whole Bloodon 2023 Glucose [Mass/Vol] 191 mg/dL High 65-105 [facility] Glucose [Mass/Vol] 152 mg/dL High 65-105 [facility] Glucose [Mass/Vol] 100 mg/dL Normal 65-105 [facility] Basic Metabolic Profon 09-12 Anion gap [Moles/Vol] 11 mmol/L Normal 9-17 [facility] Comment on above: Performed By: #### B MP #### [facility] [address] [place] [address] Land Department Head: Marcelino Millan MD BUN/CRE Ratio 12 Normal 9-20 [facility] Comment on above: Performed By: #### B MP #### [facility] [address] [place] [address] Land Department Head: Marcelino Millan MD Calcium [Mass/Vol] 8.5 mg/dL Low 8.6-10.4 [facility] Comment on above: Performed By: #### B MP #### [facility] [address] [place] [address] Land Department Head: Marcelino Millan MD Chloride [Moles/Vol] 110 mmol/L High 98-107 [facility] Comment on above: Performed By: #### B MP #### [facility] [address] [place] [address] Land Department Head: Marcelino Millan MD CO2 [Moles/Vol] 25 mmol/L Normal 20-31 [facility] Comment on above: Performed By: #### B MP #### [facility] [address] [place] [address] Land Department Head: Marcelino Millan MD Creatinine [Mass/Vol] 0.5 mg/dL Normal 0.5-0.9 [facility] Comment on above: Performed By: #### B MP #### [facility] [address] [place] [address] Land Department Head: Marcelino Millan MD GFR/1.73 sq M.predicted among non-blacks MDRD (S/P/Bld) [Vol rate/Area] mL/min/{1.73_m2} Normal >60 [facility] Comment on above: Result Comment: These results are not intended for use in patients <18 years of age. eGFR results are calculated without a race factor using the 2020 CKD-EPI equation. Careful clinical correlation is recommended, particularly when comparing to results calculated using previous equations. The CKD-EPI equation is less accurate in patients with extremes of muscle mass, extra-renal metabolism of creatine, excessive creatine ingestion, or following therapy that affects renal tubular secretion. Performed By: #### B MP #### [facility] [address] [place] [address] Land Department Head: Marcelino Millan MD Glucose [Mass/Vol] 131 mg/dL High 70-99 [facility] Comment on above: Performed By: #### B MP #### [facility] [address] [place] [address] Land Department Head: Marcelino Millan MD Potassium [Moles/Vol] 3.7 mmol/L Normal 3.7-5.3 [facility] Comment on above: Performed By: #### B MP #### [facility] [address] [place] [address] Land Department Head: Marceilno Millan MD Sodium [Moles/Vol] 146 mmol/L High 135-144 [facility] Comment on above: Performed By: #### B MP #### [facility] [address] [place] [address] Land Department Head: Marcelino Millan MD Urea nitrogen [Mass/Vol] 6 mg/dL Normal 6-20 [facility] Comment on above: Performed By: #### B MP #### [facility] [address] [place] [address] Land Department Head: Marcelino Millan MD C-Reactive Proteinon 024 CRP [Mass/Vol] 59.5 mg/L High 0.0-5.0 [facility] Comment on above: Performed By: #### C RP, CDP ####[facility] [address] [place] [address] Lab Director: Marcelino Millan MD CBC with Diffon 09-13-2023 Abs. Basophil 0.16 k/uL Normal 0.00-0.20 [facility] Comment on above: Performed By: #### C RP, CDP ####[facility] [address] [place] [address]([facility])[phone] Director: Marcelino Millan MD Abs.Imm.Granulocyte 0.64 k/uL High 0.00-0.30 [facility] Comment on above: Performed By: #### C RP, CDP ####[facility] [address] [place] [address] Lab Director: Marcelino Millan MD Abs.Neutrophil (Seg) 10.33 k/uL High 1.50-8.10 [facility] Comment on above: Performed By: #### C RP, CDP ####[facility] [address] [place] [address] Lab Director: Marcelino Millan MD Basophils/100 WBC (Bld) 1 % Normal 0-2 [facility] Comment on above: Performed By: #### C RP, CDP ####[facility] [address] [place] [address] Lab Director: Marcelino Millan MD Eosinophils (Bld) [#/Vol] 0.32 10*3/uL Normal 0.00-0.44 [facility] Comment on above: Performed By: #### C RP, CDP ####[facility] [address] [place] [address] Lab Director: Marcelino Millan MD Eosinophils/100 WBC (Bld) 2 % Normal 1-4 [facility] Comment on above: Performed By: #### C RP, CDP ####[facility] [address] [place] [address] Lab Director: Marcelino Millan MD Immature granulocytes/100 WBC (Bld) 4 % High 0 [facility] Comment on above: Performed By: #### C RP, CDP ####[facility] [address] [place] [address] Lab Director: Marcelino Millan MD Lymphocytes (Bld) [#/Vol] 3.50 10*3/uL Normal 1.10-3.70 [facility] Comment on above: Performed By: #### C RP, CDP ####[facility] [address] [place] [address] Lab Director: Marcelino Millan MD Lymphocytes/100 WBC (Bld) 22 % Low 24-43 [facility] Comment on above: Performed By: #### C RP, CDP ####[facility] [address] [place] [address] Lab Director: Marcelino Millan MD Monocytes (Bld) [#/Vol] 0.95 10*3/uL Normal 0.10-1.20 [facility] Comment on above: Performed By: #### C RP, CDP ####[facility] [address] [place] [address] Lab Director: Marcelino Millan MD Monocytes/100 WBC (Bld) 6 % Normal 3-12 [facility] Comment on above: Performed By: #### C RP, CDP ####[facility] [address] [place] [address] Lab Director: Marcelino Millan MD Neutrophil (Seg) 65 % Normal 36-65 [facility] Comment on above: Performed By: #### C RP, CDP ####[facility] [address] [place] [address].[place] [address] Lab Director: Marcelino Millan MD Erythrocyte distribution width (RBC) [Ratio] 12.7 % Normal 11.8-14.4 [facility] Comment on above: Performed By: #### C RP, CDP ####[facility] [address] [place] [address].[place] [address] Lab Director: Marcelino Millan MD Hematocrit (Bld) [Volume fraction] 36.5 % Normal 36.3-47.1 [facility] Comment on above: Performed By: #### C RP, CDP ####[facility] [address] [place] [address].[place] [address] Lab Director: Marcelino Millan MD Hemoglobin (Bld) [Mass/Vol] 11.6 g/dL Low 11.9-15.1 [facility] Comment on above: Performed By: #### C RP, CDP ####[facility] [address] [place] [address].[place] [address] Lab Director: Marcelino Millan MD MCH (RBC) [Entitic mass] 28.1 pg Normal 25.2-33.5 [facility] Comment on above: Performed By: #### C RP, CDP ####[facility] [address] [place] [address].[place] [address] Lab Director: Marcelino Millan MD MCHC (RBC) [Mass/Vol] 31.8 g/dL Normal 28.4-34.8 [facility] Comment on above: Performed By: #### C RP, CDP ####[facility] [address] [place] [address] Lab Director: Marcelino Millan MD MCV (RBC) [Entitic vol] 88.4 fL Normal 82.6-102.9 [facility] Comment on above: Performed By: #### C RP, CDP ####[facility] [address] [place] [address] Lab Director: Marcelino Millan MD NRBC Automated 0.0 per 100 WBC Normal 0.0 [facility] Comment on above: Performed By: #### C RP, CDP ####[facility] [address] [place] [address].[place] [address] Lab Director: Marcelino Millan MD Platelet mean volume (Bld) [Entitic vol] 10.3 fL Normal 8.1-13.5 [facility] Comment on above: Performed By: #### C RP, CDP ####[facility] [address] [place] [address] Lab Director: Marcelino Millan MD Platelets (Bld) [#/Vol] 346 10*3/uL Normal 138-453 [facility] Comment on above: Performed By: #### C RP, CDP ####[facility] [address] [place] [address].[place] [address] Lab Director: Marcelino Millan MD RBC (Bld) [#/Vol] 4.13 10*6/uL Normal 3.95-5.11 [facility] Comment on above: Performed By: #### C RP, CDP ####[facility] [address] [place] [address].[place] [address] Lab Director: Marcelino Millan MD WBC (Bld) [#/Vol] 15.9 10*3/uL High 3.5-11.3 [facility] Comment on above: Performed By: #### C RP, CDP ####[facility] [address] [place] [address] Lab Director: Marcelino Millan MD Glucose,Whole Bloodon 2023 Glucose [Mass/Vol] 141 mg/dL High 65-105 [facility] Glucose [Mass/Vol] 122 mg/dL High 65-105 [facility] Glucose [Mass/Vol] 173 mg/dL High 65-105 [facility] Glucose [Mass/Vol] 137 mg/dL High 65-105 [facility] Basic Metabolic Profon 09-11 Anion gap [Moles/Vol] 9 mmol/L Normal 9-17 [facility] Comment on above: Performed By: #### C DP, BMP #### [facility] [address] [place] [address] Land Department Head: Marcelino Millan MD BUN/CRE Ratio 16 Normal 9-20 [facility] Comment on above: Performed By: #### C DP, BMP #### [facility] [address] [place] [address] Land Department Head: Marcelino Millan MD Calcium [Mass/Vol] 8.2 mg/dL Low 8.6-10.4 [facility] Comment on above: Performed By: #### C DP, BMP #### [facility] [address] [place] [address] Land Department Head: Marcelino Millan MD Chloride [Moles/Vol] 108 mmol/L High 98-107 [facility] Comment on above: Performed By: #### C DP, BMP #### [facility] [address] [place] [address] Land Department Head: Marcelino Millan MD CO2 [Moles/Vol] 25 mmol/L Normal 20-31 [facility] Comment on above: Performed By: #### C DP, BMP #### [facility] [address] [place] [address] Land Department Head: Marcelino Millan MD Creatinine [Mass/Vol] 0.5 mg/dL Normal 0.5-0.9 [facility] Comment on above: Performed By: #### C DP, BMP #### [facility] [address] [place] [address] Land Department Head: Marcelino Millan MD GFR/1.73 sq M.predicted among non-blacks MDRD (S/P/Bld) [Vol rate/Area] mL/min/{1.73_m2} Normal >60 [facility] Comment on above: Result Comment: These results are not intended for use in patients <18 years of age. eGFR results are calculated without a race factor using the 2020 CKD-EPI equation. Careful clinical correlation is recommended, particularly when comparing to results calculated using previous equations. The CKD-EPI equation is less accurate in patients with extremes of muscle mass, extra-renal metabolism of creatine, excessive creatine ingestion, or following therapy that affects renal tubular secretion. Performed By: #### C DP, BMP #### [facility] [address] [place] [address] Land Department Head: Marcelino Millan MD Glucose [Mass/Vol] 124 mg/dL High 70-99 [facility] Comment on above: Performed By: #### C DP, BMP #### [facility] [address] [place] [address] Land Department Head: Marcelino Millan MD Potassium [Moles/Vol] 3.5 mmol/L Low 3.7-5.3 [facility] Comment on above: Performed By: #### C DP, BMP #### [facility] [address] [place] [address] Land Department Head: Marcelino Millan MD Sodium [Moles/Vol] 142 mmol/L Normal 135-144 [facility] Comment on above: Performed By: #### C DP, BMP #### [facility] [address] [place] [address] Land Department Head: Marcelino Millan MD Urea nitrogen [Mass/Vol] 8 mg/dL Normal 6-20 [facility] Comment on above: Performed By: #### C DP, BMP #### [facility] [address] [place] [address] Land Department Head: Marcelino Millan MD C-Reactive Proteinon 024 CRP [Mass/Vol] 93.4 mg/L High 0.0-5.0 [facility] Comment on above: Performed By: #### C RP, VNCR ####[facility] [address] [place] [phone] Director: Marcelino Millan MD CBC with Diffon 09-12-2023 Abs. Basophil 0.15 k/uL Normal 0.0-0.2 [facility] Comment on above: Performed By: #### C DP, BMP #### [facility] [place] [address] Land Department Head: Marcelino Millan MD Abs.Imm.Granulocyte 0.59 k/uL High 0.00-0.30 [facility] Comment on above: Performed By: #### C DP, BMP #### [facility] [place] [address] Land Department Head: Marcelino Millan MD Abs.Neutrophil (Seg) 9.03 k/uL High 1.8-7.7 [facility] Comment on above: Performed By: #### C DP, BMP #### [facility] [address] [place] [address]. [place] [address] Land Department Head: Marcelino Millan MD Basophils/100 WBC (Bld) 1 % Normal [facility] Comment on above: Performed By: #### C DP, BMP #### [facility] [address] [place] [address] Land Department Head: Marcelino Millan MD Eosinophils (Bld) [#/Vol] 0.30 10*3/uL Normal 0.0-0.4 [facility] Comment on above: Performed By: #### C DP, BMP #### [facility] [address] [place] [address] Land Department Head: Marcelino Millan MD Eosinophils/100 WBC (Bld) 2 % Normal 1-4 [facility] Comment on above: Performed By: #### C DP, BMP #### [facility] [address] [place] [address] Land Department Head: Marcelino Millan MD Immature granulocytes/100 WBC (Bld) 4 % High 0 [facility] Comment on above: Performed By: #### C DP, BMP #### [facility] [address] [place] [address] Land Department Head: Marcelino Millan MD Lymphocytes (Bld) [#/Vol] 3.55 10*3/uL Normal 1.0-4.8 [facility] Comment on above: Performed By: #### C DP, BMP #### [facility] [address] [place] [address] Land Department Head: Marcelino Millan MD Lymphocytes/100 WBC (Bld) 24 % Normal 24-44 [facility] Comment on above: Performed By: #### C DP, BMP #### [facility] [address] [place] [address] Land Department Head: Marcelino Millan MD Monocytes (Bld) [#/Vol] 1.18 10*3/uL High 0.2-0.8 [facility] Comment on above: Performed By: #### C DP, BMP #### [facility] [address] [place] [address]. [place] [address] Land Department Head: Marcelino Millan MD Monocytes/100 WBC (Bld) 8 % High 1-7 [facility] Comment on above: Performed By: #### C DP, BMP #### [facility] [address] [place] [address]. [place] [address] Land Department Head: Marcelino Millan MD Neutrophil (Seg) 61 % Normal 36-66 [facility] Comment on above: Performed By: #### C DP, BMP #### [facility] [address] [place] [address]. [place] [address] Land Department Head: Marcelino Millan MD Erythrocyte distribution width (RBC) [Ratio] 12.7 % Normal 11.8-14.4 [facility] Comment on above: Performed By: #### C DP, BMP #### [facility] [address] [place] [address]. [place] [address] Land Department Head: Marcelino Millan MD Hematocrit (Bld) [Volume fraction] 36.5 % Normal 36.3-47.1 [facility] Comment on above: Performed By: #### C DP, BMP #### [facility] [address] [place] [address]. [place] [address] Land Department Head: Marcelino Millan MD Hemoglobin (Bld) [Mass/Vol] 11.6 g/dL Low 11.9-15.1 [facility] Comment on above: Performed By: #### C DP, BMP #### [facility] [address] [place] [address] Land Department Head: Marcelino Millan MD MCH (RBC) [Entitic mass] 27.6 pg Normal 25.2-33.5 [facility] Comment on above: Performed By: #### C DP, BMP #### [facility] [address] [place] [address] Land Department Head: Marcelino Millan MD MCHC (RBC) [Mass/Vol] 31.8 g/dL Normal 28.4-34.8 [facility] Comment on above: Performed By: #### C DP, BMP #### [facility] [address] [place] [address] Land Department Head: Marcelino Millan MD MCV (RBC) [Entitic vol] 86.9 fL Normal 82.6-102.9 [facility] Comment on above: Performed By: #### C DP, BMP #### [facility] [address] [place] [address] Land Department Head: Marcelino Millan MD NRBC Automated 0.0 per 100 WBC Normal 0.0 [facility] Comment on above: Performed By: #### C DP, BMP #### [facility] [address] [place] [address] Land Department Head: Marcelino Millan MD Platelet mean volume (Bld) [Entitic vol] 10.5 fL Normal 8.1-13.5 [facility] Comment on above: Performed By: #### C DP, BMP #### [facility] [address] [place] [address] Land Department Head: Marcelino Millan MD Platelets (Bld) [#/Vol] 364 10*3/uL Normal 138-453 [facility] Comment on above: Performed By: #### C DP, BMP #### [facility] [address] [place] [address] Land Department Head: Marcelino Millan MD RBC (Bld) [#/Vol] 4.20 10*6/uL Normal 3.95-5.11 [facility] Comment on above: Performed By: #### C DP, BMP #### [facility] [address] [place] [address] Land Department Head: Marcelino Millan MD WBC (Bld) [#/Vol] 14.8 10*3/uL High 3.5-11.3 [facility] Comment on above: Performed By: #### C RINKU, BMP #### [facility] [address] [place] [address] Land Department Head: Marcelino Millan MD Glucose,Whole Bloodon 2023 Glucose [Mass/Vol] 226 mg/dL High 65-105 [facility] Glucose [Mass/Vol] 199 mg/dL High 65-105 [facility] Glucose [Mass/Vol] 225 mg/dL High 65-105 [facility] Glucose [Mass/Vol] 124 mg/dL High 65-105 [facility] Vancomycin,Randomon 09-12-19 24 Vancomycin 18.0 ug/mL Normal [facility] Comment on above: Result Comment: High er trough serum vancomycin concentrations of 15-20 ug/mL are recommended for complicated infections such as bacteremia, endocarditis, osteomyelitis, meningitis, and hospital acquired pneumonia. Performed By: #### C RP, VNCR ####[facility] [address] [place] [address] Lab Director: Marcelino Millan MD Basic Metabolic Profon 09-10 Anion gap [Moles/Vol] 12 mmol/L Normal 9-17 [facility] Comment on above: Performed By: #### V NCR #### [facility] [address] [place] [address] Land Department Head: Marcelino Millan MD BUN/CRE Ratio 24 High 9-20 [facility] Comment on above: Performed By: #### V NCR #### [facility] [address] [place] [address] Land Department Head: Marcelino Millan MD Calcium [Mass/Vol] 8.4 mg/dL Low 8.6-10.4 [facility] Comment on above: Performed By: #### V NCR #### [facility] [address] [place] [address] Land Department Head: Marcelino Millan MD Chloride [Moles/Vol] 107 mmol/L Normal 98-107 [facility] Comment on above: Performed By: #### V NCR #### [facility] [address] [place] [address] Land Department Head: Marcelino Millan MD CO2 [Moles/Vol] 21 mmol/L Normal 20-31 [facility] Comment on above: Performed By: #### V NCR #### [facility] [address] [place] [address] Land Department Head: Marcelino Millan MD Creatinine [Mass/Vol] 0.5 mg/dL Normal 0.5-0.9 [facility] Comment on above: Performed By: #### V NCR #### [facility] [address] [place] [address] Land Department Head: Marcelino Millan MD GFR/1.73 sq M.predicted among non-blacks MDRD (S/P/Bld) [Vol rate/Area] mL/min/{1.73_m2} Normal >60 [facility] Comment on above: Result Comment: These results are not intended for use in patients <18 years of age. eGFR results are calculated without a race factor using the 2020 CKD-EPI equation. Careful clinical correlation is recommended, particularly when comparing to results calculated using previous equations. The CKD-EPI equation is less accurate in patients with extremes of muscle mass, extra-renal metabolism of creatine, excessive creatine ingestion, or following therapy that affects renal tubular secretion. Performed By: #### V NCR #### [facility] [address] [place] [address] Land Department Head: Marcelino Millan MD Glucose [Mass/Vol] 135 mg/dL High 70-99 [facility] Comment on above: Performed By: #### V NCR #### [facility] [address] [place] [address] Land Department Head: Marcelino Millan MD Potassium [Moles/Vol] 3.1 mmol/L Low 3.7-5.3 [facility] Comment on above: Performed By: #### V NCR #### [facility] [address] [place] [address] Land Department Head: Marcelino Millan MD Sodium [Moles/Vol] 140 mmol/L Normal 135-144 [facility] Comment on above: Performed By: #### V NCR #### [facility] [address] [place] [address] Land Department Head: Marcelino Millan MD Urea nitrogen [Mass/Vol] 12 mg/dL Normal 6-20 [facility] Comment on above: Performed By: #### V NCR #### [facility] [address] [place] [address] Land Department Head: Marcelino Millan MD CBC with Diffon 09-11-2023 Abs. Basophil 0.21 k/uL High 0.0-0.2 [facility] Comment on above: Performed By: #### V NCR #### [facility] [place] [address] Land Department Head: Marcelino Millan MD Abs.Imm.Granulocyte 0.62 k/uL High 0.00-0.30 [facility] Comment on above: Performed By: #### V NCR #### [facility] [address] [place] [address] Land Department Head: Marcelino Millan MD Abs.Neutrophil (Seg) 14.48 k/uL High 1.8-7.7 [facility] Comment on above: Performed By: #### V NCR #### [facility] [address] [place] [address] Land Department Head: Marcelino Millan MD Basophils/100 WBC (Bld) 1 % Normal [facility] Comment on above: Performed By: #### V NCR #### [facility] [address] [place] [address] Land Department Head: Marcelino Millan MD Eosinophils (Bld) [#/Vol] 0.21 10*3/uL Normal 0.0-0.4 [facility] Comment on above: Performed By: #### V NCR #### [facility] [address] [place] [address] Land Department Head: Marcelino Millan MD Eosinophils/100 WBC (Bld) 1 % Normal 1-4 [facility] Comment on above: Performed By: #### V NCR #### [facility] [address] [place] [address] Land Department Head: Marcelino Millan MD Immature granulocytes/100 WBC (Bld) 3 % High 0 [facility] Comment on above: Performed By: #### V NCR #### [facility] [address] [place] [address] Land Department Head: Marcelino Millan MD Lymphocytes (Bld) [#/Vol] 3.73 10*3/uL Normal 1.0-4.8 [facility] Comment on above: Performed By: #### V NCR #### [facility] [address] [place] [address] Land Department Head: Marcelino Millan MD Lymphocytes/100 WBC (Bld) 18 % Low 24-44 [facility] Comment on above: Performed By: #### V NCR #### [facility] [address] [place] [address] Land Department Head: Marcelino Millan MD Monocytes (Bld) [#/Vol] 1.45 10*3/uL High 0.2-0.8 [facility] Comment on above: Performed By: #### V NCR #### [facility] [place] [address] Land Department Head: Marcelino Millan MD Monocytes/100 WBC (Bld) 7 % Normal 1-7 [facility] Comment on above: Performed By: #### V NCR #### [facility] [place] [address] Land Department Head: Marcelino Millan MD Neutrophil (Seg) 70 % High 36-66 [facility] Comment on above: Performed By: #### V NCR #### [facility] [place] [address] Land Department Head: Marcelino Millan MD Erythrocyte distribution width (RBC) [Ratio] 12.5 % Normal 11.8-14.4 [facility] Comment on above: Performed By: #### V NCR #### [facility] [place] [address] Land Department Head: Marcelino Millan MD Hematocrit (Bld) [Volume fraction] 38.4 % Normal 36.3-47.1 [facility] Comment on above: Performed By: #### V NCR #### [facility] [address] [place] [address] Land Department Head: Marcelino Millan MD Hemoglobin (Bld) [Mass/Vol] 12.2 g/dL Normal 11.9-15.1 [facility] Comment on above: Performed By: #### V NCR #### [facility] [address] [place] [address] Land Department Head: Marcelino Millan MD MCH (RBC) [Entitic mass] 27.6 pg Normal 25.2-33.5 [facility] Comment on above: Performed By: #### V NCR #### [facility] [address] [place] [address]. [place] [address] Land Department Head: Marcelino Millan MD MCHC (RBC) [Mass/Vol] 31.8 g/dL Normal 28.4-34.8 [facility] Comment on above: Performed By: #### V NCR #### [facility] [place] [address] Land Department Head: Marcelino Millan MD MCV (RBC) [Entitic vol] 86.9 fL Normal 82.6-102.9 [facility] Comment on above: Performed By: #### V NCR #### [facility] [place] [address] Land Department Head: Marcelino Millan MD NRBC Automated 0.0 per 100 WBC Normal 0.0 [facility] Comment on above: Performed By: #### V NCR #### [facility] [place] [address] Land Department Head: Marcelino Millan MD Platelet mean volume (Bld) [Entitic vol] 10.5 fL Normal 8.1-13.5 [facility] Comment on above: Performed By: #### V NCR #### [facility] [address] [place] [address] Land Department Head: Marcelino Millan MD Platelets (Bld) [#/Vol] 383 10*3/uL Normal 138-453 [facility] Comment on above: Performed By: #### V NCR #### [facility] [address] [place] [address] Land Department Head: Marcelino Millan MD RBC (Bld) [#/Vol] 4.42 10*6/uL Normal 3.95-5.11 [facility] Comment on above: Performed By: #### V NCR #### [facility] [address] [place] [address] Land Department Head: Marcelino Millan MD WBC (Bld) [#/Vol] 20.7 10*3/uL High 3.5-11.3 [facility] Comment on above: Performed By: #### V NCR #### [facility] [address] [place] [address] Land Department Head: Marcelino Millan MD Glucose,Whole Bloodon 2023 Glucose [Mass/Vol] 236 mg/dL High 65-105 [facility] Glucose [Mass/Vol] 168 mg/dL High 65-105 [facility] Glucose [Mass/Vol] 179 mg/dL High 65-105 [facility] Glucose [Mass/Vol] 118 mg/dL High 65-105 [facility] Vancomycin,Randomon 09-11-19 24 Vancomycin 19.2 ug/mL Normal [facility] Comment on above: Result Comment: High er trough serum vancomycin concentrations of 15-20 ug/mL are recommended for complicated infections such as bacteremia, endocarditis, osteomyelitis, meningitis, and hospital acquired pneumonia. Performed By: #### C DP, BMP #### [facility] [address] [place] [address] Land Department Head: Marcelino Millan MD Basic Metabolic Profon 09-09 Anion gap [Moles/Vol] 16 mmol/L Normal 9-17 [facility] Comment on above: Performed By: #### V NCR #### [facility] [address] [place] [address] Land Department Head: Marcelino Millan MD BUN/CRE Ratio 26 High 9-20 [facility] Comment on above: Performed By: #### V NCR #### [facility] [address] [place] [address] Land Department Head: Marcelino Millan MD Calcium [Mass/Vol] 8.5 mg/dL Low 8.6-10.4 [facility] Comment on above: Performed By: #### V NCR #### [facility] [address] [place] [address] Land Department Head: Marcelino Millan MD Chloride [Moles/Vol] 102 mmol/L Normal 98-107 [facility] Comment on above: Performed By: #### V NCR #### [facility] [address] [place] [address] Land Department Head: Marcelino Millan MD CO2 [Moles/Vol] 17 mmol/L Low 20-31 [facility] Comment on above: Performed By: #### V NCR #### [facility] [address] [place] [address] Land Department Head: Marcelino Millan MD Creatinine [Mass/Vol] 0.5 mg/dL Normal 0.5-0.9 [facility] Comment on above: Performed By: #### V NCR #### [facility] [address] [place] [address] Land Department Head: Marcelino Millan MD GFR/1.73 sq M.predicted among non-blacks MDRD (S/P/Bld) [Vol rate/Area] mL/min/{1.73_m2} Normal >60 [facility] Comment on above: Result Comment: These results are not intended for use in patients <18 years of age. eGFR results are calculated without a race factor using the 2020 CKD-EPI equation. Careful clinical correlation is recommended, particularly when comparing to results calculated using previous equations. The CKD-EPI equation is less accurate in patients with extremes of muscle mass, extra-renal metabolism of creatine, excessive creatine ingestion, or following therapy that affects renal tubular secretion. Performed By: #### V NCR #### [facility] [address] [place] [address] Land Department Head: Marcelino Millan MD Glucose [Mass/Vol] 318 mg/dL High 70-99 [facility] Comment on above: Performed By: #### V NCR #### [facility] [place] [address] Land Department Head: Marcelino Millan MD Potassium [Moles/Vol] 4.3 mmol/L Normal 3.7-5.3 [facility] Comment on above: Performed By: #### V NCR #### [facility] [address] [place] [address] Land Department Head: Marcelino Millan MD Sodium [Moles/Vol] 135 mmol/L Normal 135-144 [facility] Comment on above: Performed By: #### V NCR #### [facility] [address] [place] [address] Land Department Head: Marcelino Millan MD Urea nitrogen [Mass/Vol] 13 mg/dL Normal 6-20 [facility] Comment on above: Performed By: #### V NCR #### [facility] [place] [address] Land Department Head: Marcelino Millan MD C-Reactive Proteinon 024 CRP [Mass/Vol] 345.1 mg/L High 0.0-5.0 [facility] Comment on above: Performed By: #### V NCR #### [facility] [address] [place] [address] Land Department Head: Marcelino Millan MD CBC with Diffon 09-10-2023 Abs. Basophil 0.00 k/uL Normal 0.0-0.2 [facility] Comment on above: Performed By: #### V NCR #### [facility] [address] [place] [address] Land Department Head: Marcelino Millan MD Abs.Imm.Granulocyte 0.26 k/uL Normal 0.00-0.30 [facility] Comment on above: Performed By: #### V NCR #### [facility] [address] [place] [address] Land Department Head: Marcelino Millan MD Abs.Neutrophil (Seg) 22.70 k/uL High 1.8-7.7 [facility] Comment on above: Performed By: #### V NCR #### [facility] [address] [place] [address] Land Department Head: Marcelino Millan MD Basophils/100 WBC (Bld) 0 % Normal [facility] Comment on above: Performed By: #### V NCR #### [facility] [address] [place] [address] Land Department Head: Marcelino Millan MD Eosinophils (Bld) [#/Vol] 0.00 10*3/uL Normal 0.0-0.4 [facility] Comment on above: Performed By: #### V NCR #### [facility] [place] [address] Land Department Head: Marcelino Millan MD Eosinophils/100 WBC (Bld) 0 % Low 1-4 [facility] Comment on above: Performed By: #### V NCR #### [facility] [address] [place] [address]. [place] [address] Land Department Head: Marcelino Millan MD Immature granulocytes/100 WBC (Bld) 1 % High 0 [facility] Comment on above: Performed By: #### V NCR #### [facility] [address] [place] [address] Land Department Head: Marcelino Millan MD Lymphocytes (Bld) [#/Vol] 1.29 10*3/uL Normal 1.0-4.8 [facility] Comment on above: Performed By: #### V NCR #### [facility] [address] [place] [address] Land Department Head: Marcelino Millan MD Lymphocytes/100 WBC (Bld) 5 % Low 24-44 [facility] Comment on above: Performed By: #### V NCR #### [facility] [address] [place] [address]. [place] [address] Land Department Head: Marcelino Millan MD Monocytes (Bld) [#/Vol] 1.55 10*3/uL High 0.2-0.8 [facility] Comment on above: Performed By: #### V NCR #### [facility] [address] [place] [address]. [place] [address] Land Department Head: Marcelino Millan MD Monocytes/100 WBC (Bld) 6 % Normal 1-7 [facility] Comment on above: Performed By: #### V NCR #### [facility] [address] [place] [address] Land Department Head: Marcelino Millan MD Neutrophil (Seg) 88 % High 36-66 [facility] Comment on above: Performed By: #### V NCR #### [facility] [address] [place] [address] Land Department Head: Marcelino Millan MD Erythrocyte distribution width (RBC) [Ratio] 12.4 % Normal 11.8-14.4 [facility] Comment on above: Performed By: #### V NCR #### [facility] [place] [address] Land Department Head: Marcelino Millan MD Hematocrit (Bld) [Volume fraction] 39.9 % Normal 36.3-47.1 [facility] Comment on above: Performed By: #### V NCR #### [facility] [place] [address] Land Department Head: Marcelino Millan MD Hemoglobin (Bld) [Mass/Vol] 12.7 g/dL Normal 11.9-15.1 [facility] Comment on above: Performed By: #### V NCR #### [facility] [address] [place] [address] Land Department Head: Marcelino Millan MD MCH (RBC) [Entitic mass] 27.8 pg Normal 25.2-33.5 [facility] Comment on above: Performed By: #### V NCR #### [facility] [place] [address] Land Department Head: Marcelino Millan MD MCHC (RBC) [Mass/Vol] 31.8 g/dL Normal 28.4-34.8 [facility] Comment on above: Performed By: #### V NCR #### [facility] [address] [place] [address] [address] Department Head: Marcelino Millan MD MCV (RBC) [Entitic vol] 87.3 fL Normal 82.6-102.9 [facility] Comment on above: Performed By: #### V NCR #### [facility] [address] [place] [address] [place] Department Head: Mareclino Millan MD NRBC Automated 0.0 per 100 WBC Normal 0.0 [facility] Comment on above: Performed By: #### V NCR #### [facility] [address] [place] [address] [place] Department Head: Marcelino Millan MD Platelet mean volume (Bld) [Entitic vol] 11.1 fL Normal 8.1-13.5 [facility] Comment on above: Performed By: #### V NCR #### [facility] [address] [place] [address] [address] Department Head: Marcelino Millan MD Platelets (Bld) [#/Vol] 325 10*3/uL Normal 138-453 [facility] Comment on above: Performed By: #### V NCR #### [facility] [address] [place] [address] [place] Department Head: Marcelino Millan MD RBC (Bld) [#/Vol] 4.57 10*6/uL Normal 3.95-5.11 [facility] Comment on above: Performed By: #### V NCR #### [facility] [address] [place] [address] [place] Department Head: Marcelino Millan MD WBC (Bld) [#/Vol] 25.8 10*3/uL High 3.5-11.3 [facility] Comment on above: Performed By: #### V NCR #### [facility] [address] [place], [place] [id number] [place] Department Head: Marcelino Millan MD Fungi,Direct Examon 09-10-19 24 Fungi,Direct Exam Specimen Description .THIGH RIGHT SWAB Special Requests Site: Swab Direct Exam NO FUNGAL ELEMENTS SEEN Report Status FINAL 09/10/2023 Normal [facility] Comment on above: Performed By: #### F SM #### [facility] [address] [place], [place] [id number] [place] Department Head: Marcelino Millan MD [address] [address] [place] Department Head: Franck Valencia MD Glucose,Whole Bloodon 2023 Glucose [Mass/Vol] 225 mg/dL High -105 [facility] Glucose [Mass/Vol] 235 mg/dL High [facility] Glucose [Mass/Vol] 229 mg/dL High [facility] Glucose [Mass/Vol] 298 mg/dL High [facility] Glucose [Mass/Vol] 292 mg/dL High [facility] Glucose [Mass/Vol] 319 mg/dL High [facility] Vancomycin,Randomon 09-10-19 24 Vancomycin 12.5 ug/mL Normal [facility] Comment on above: Result Comment: High er trough serum vancomycin concentrations of 15-20 ug/mL are recommended for complicated infections such as bacteremia, endocarditis, osteomyelitis, meningitis, and hospital acquired pneumonia. Performed By: #### V NCR #### [facility] [address] [place], [place] [phone] [place] Department Head: Marcelino Millan MD Basic Metabolic Profon 09-08 Anion gap [Moles/Vol] 15 mmol/L Normal 9-17 [facility] Comment on above: Performed By: #### C DP, BMP #### [facility] [address] [place] [address] Land Department Head: Marcelino Millan MD BUN/CRE Ratio 18 Normal 9-20 [facility] Comment on above: Performed By: #### C DP, BMP #### [facility] [address] [place] [address] Land Department Head: Marcelino Millan MD Calcium [Mass/Vol] 8.4 mg/dL Low 8.6-10.4 [facility] Comment on above: Performed By: #### C DP, BMP #### [facility] [address] [place] [address] [place] Department Head: Marcelino Millan MD Chloride [Moles/Vol] 95 mmol/L Low 98-107 [facility] Comment on above: Performed By: #### C DP, BMP #### [facility] [address] [place] [address] [place] Department Head: Marcelino Millan MD CO2 [Moles/Vol] 20 mmol/L Normal 20-31 [facility] Comment on above: Performed By: #### C DP, BMP #### [facility] [address] [place] [address] [place] Department Head: Marcelino Millan MD Creatinine [Mass/Vol] 0.6 mg/dL Normal 0.5-0.9 [facility] Comment on above: Performed By: #### C DP, BMP #### [facility] [address] [place] [address] Land Department Head: Marcelino Millan MD GFR/1.73 sq M.predicted among non-blacks MDRD (S/P/Bld) [Vol rate/Area] mL/min/{1.73_m2} Normal >60 [facility] Comment on above: Result Comment: These results are not intended for use in patients <18 years of age. eGFR results are calculated without a race factor using the 2020 CKD-EPI equation. Careful clinical correlation is recommended, particularly when comparing to results calculated using previous equations. The CKD-EPI equation is less accurate in patients with extremes of muscle mass, extra-renal metabolism of creatine, excessive creatine ingestion, or following therapy that affects renal tubular secretion. Performed By: #### C DP, BMP #### [facility] [address] [place] [address]. [place] [address] Land Department Head: Marcelino Millan MD Glucose [Mass/Vol] 344 mg/dL High 70-99 [facility] Comment on above: Performed By: #### C DP, BMP #### [facility] [address] [place] [address]. [place] [address] Land Department Head: Marcelino Millan MD Potassium [Moles/Vol] 4.1 mmol/L Normal 3.7-5.3 [facility] Comment on above: Performed By: #### C DP, BMP #### [facility] [address] [place] [address]. [place] [address] Land Department Head: Marcelino Millan MD Sodium [Moles/Vol] 130 mmol/L Low 135-144 [facility] Comment on above: Performed By: #### C DP, BMP #### [facility] [address] [place] [address]. [place] [address] Land Department Head: Marcelino Millan MD Urea nitrogen [Mass/Vol] 11 mg/dL Normal 6-20 [facility] Comment on above: Performed By: #### C DP, BMP #### [facility] [address] [place] [address]. [place] [address] [place] Department Head: Marcelino Millan MD C-Reactive Proteinon 09-08- 024 CRP [Mass/Vol] 346.9 mg/L High 0.0-5.0 [facility] Comment on above: Performed By: #### C DP, BMP #### [facility] [address] [place] [address]. [place] [address] [place] Department Head: Marcelino Millan MD CBC with Diffon 09-09-2023 Abs. Basophil 0.00 k/uL Normal 0.0-0.2 [facility] Comment on above: Performed By: #### C DP, BMP #### [facility] [address] [place] [address] [place] Department Head: Marcelino Millan MD Abs.Imm.Granulocyte 0.57 k/uL High 0.00-0.30 [facility] Comment on above: Performed By: #### C DP, BMP #### [facility] [address] [place] [address] [place] Department Head: Marcelino Millan MD Abs.Neutrophil (Seg) 24.14 k/uL High 1.8-7.7 [facility] Comment on above: Performed By: #### C DP, BMP #### [facility] [address] [place] [address] [place] Department Head: Marcelino Millan MD Basophils/100 WBC (Bld) 0 % Normal [facility] Comment on above: Performed By: #### C DP, BMP #### [facility] [address] [place] [address] [place] Department Head: Marcelino Millan MD Eosinophils (Bld) [#/Vol] 0.00 10*3/uL Normal 0.0-0.4 [facility] Comment on above: Performed By: #### C DP, BMP #### [facility] [address] [place] [address] [place] Department Head: Marcelino Millan MD Eosinophils/100 WBC (Bld) 0 % Low 1-4 [facility] Comment on above: Performed By: #### C DP, BMP #### [facility] [address] [place] [address]. [place] [address] Land Department Head: Marcelino Millan MD Immature granulocytes/100 WBC (Bld) 2 % High 0 [facility] Comment on above: Performed By: #### C DP, BMP #### [facility] [address] [place] [address]. [place] [address] [place] Department Head: Marcelino Millan MD Lymphocytes (Bld) [#/Vol] 1.42 10*3/uL Normal 1.0-4.8 [facility] Comment on above: Performed By: #### C DP, BMP #### [facility] [address] [place] [address] [place] Department Head: Marcelino Millan MD Lymphocytes/100 WBC (Bld) 5 % Low 24-44 [facility] Comment on above: Performed By: #### C DP, BMP #### [facility] [address] [place] [address] [place] Department Head: Macrelino Millan MD Monocytes (Bld) [#/Vol] 2.27 10*3/uL High 0.2-0.8 [facility] Comment on above: Performed By: #### C DP, BMP #### [facility] [address] [place] [address]. [place] [address] [place] Department Head: Marcelino Millan MD Monocytes/100 WBC (Bld) 8 % High 1-7 [facility] Comment on above: Performed By: #### C DP, BMP #### [facility] [address] [place] [address]. [place] [address] [place] Department Head: Marcelino Millan MD Neutrophil (Seg) 85 % High 36-66 [facility] Comment on above: Performed By: #### C DP, BMP #### [facility] [address] [place] [address] Land Department Head: Marcelino Millan MD Erythrocyte distribution width (RBC) [Ratio] 12.2 % Normal 11.8-14.4 [facility] Comment on above: Performed By: #### C DP, BMP #### [facility] [address] [place] [address]. [place] [address] [place] Department Head: Marcelino Millan MD Hematocrit (Bld) [Volume fraction] 36.6 % Normal 36.3-47.1 [facility] Comment on above: Performed By: #### C DP, BMP #### [facility] [address] [place] [address]. [place] [address] Land Department Head: Marcelino Millan MD Hemoglobin (Bld) [Mass/Vol] 12.0 g/dL Normal 11.9-15.1 [facility] Comment on above: Performed By: #### C DP, BMP #### [facility] [address] [place] [address]. [place] [address] [place] Department Head: Marcelino Millan MD MCH (RBC) [Entitic mass] 27.4 pg Normal 25.2-33.5 [facility] Comment on above: Performed By: #### C DP, BMP #### [facility] [address] [place] [address]. [place] [address] [place] Department Head: Marcelino Millan MD MCHC (RBC) [Mass/Vol] 32.8 g/dL Normal 28.4-34.8 [facility] Comment on above: Performed By: #### C DP, BMP #### [facility] [address] [place] [address]. [place] [address] [place] Department Head: Marcelino Millan MD MCV (RBC) [Entitic vol] 83.6 fL Normal 82.6-102.9 [facility] Comment on above: Performed By: #### C DP, BMP #### [facility] [place] [address] Land Department Head: Marcelino Millan MD NRBC Automated 0.0 per 100 WBC Normal 0.0 [facility] Comment on above: Performed By: #### C DP, BMP #### [facility] [address] [place], [place] [address]ia [place] [address] Land Department Head: Marcelino Millan MD Platelet mean volume (Bld) [Entitic vol] 10.7 fL Normal 8.1-13.5 [facility] Comment on above: Performed By: #### C DP, BMP #### [facility] [address] [place] [address]. [place] [address] Land Department Head: Marcelino Millan MD Platelets (Bld) [#/Vol] 339 10*3/uL Normal 138-453 [facility] Comment on above: Performed By: #### C DP, BMP #### [facility] [address] [place] [address]. [place] [address] Land Department Head: Marcelino Millan MD RBC (Bld) [#/Vol] 4.38 10*6/uL Normal 3.95-5.11 [facility] Comment on above: Performed By: #### C DP, BMP #### [facility] [address] [place] [address]. [place] [address] Land Department Head: Marcelino Millan MD WBC (Bld) [#/Vol] 28.4 10*3/uL High 3.5-11.3 [facility] Comment on above: Performed By: #### C DP, BMP #### [facility] [address] [place] [address]. [place] [address] Land Department Head: Marcelino Millan MD Glucose,Whole Bloodon 2023 Glucose [Mass/Vol] 254 mg/dL High 65-105 [facility] Glucose [Mass/Vol] 188 mg/dL High 65-105 [facility] Glucose [Mass/Vol] 205 mg/dL High 65-105 [facility] Glucose [Mass/Vol] 306 mg/dL High 65-105 [facility] Hemoglobin A1Con 09-09-2023 Glucose [Mass/Vol] 272 mg/dL Normal [facility] Comment on above: Result Comment: The ADA and AACC recommend providing the estimated average glucose result to permit better patient understanding of their HBA1c result. Performed By: #### C DP, BMP #### [facility] [address] [place], [place] [id number] [place] Department Head: Marcelino Millan MD HbA1c (Bld) [Mass fraction] 11.1 % High 4.0-6.0 [facility] Comment on above: Performed By: #### C DP, BMP #### [facility] [address] [place] [address] Land Department Head: Marcelino Millan MD Lactate, Sepsison 09-09-2023 Lactic Acid, Sepsis 1.3 mmol/L Normal 0.5-1.9 [facility] Comment on above: Performed By: #### L ACDS ####[facility] [address] [place] [address] Lab Director: Marcelino Millan MD Lactic Acid, Sepsis 1.2 mmol/L Normal 0.5-1.9 [facility] Comment on above: Performed By: #### L ACDS ####[facility] [address], [place] [id number] Lab Director: Marcelino Millan MD Lactic Acid, Sepsis 1.3 mmol/L Normal 0.5-1.9 [facility] Comment on above: Performed By: #### C DP, BMP #### [facility] [place] [address] Land Department Head: Marcelnio Millan MD Lipid Profileon 09-09-2023 Cholesterol [Mass/Vol] 135 mg/dL Normal 0-199 [facility] Comment on above: Result Comment: Cholesterol Guidelines: <200 Desirable 200-240 Borderline >240 Undesirable Performed By: #### C DP, BMP #### [facility] [address] [place] [address] [place] Department Head: Marcelino Millan MD Cholesterol in HDL [Mass/Vol] 17 mg/dL Low >40 [facility] Comment on above: Result Comment: HDL Guidelines: <40 Undesirable 40-59 Borderline >59 Desirable Performed By: #### C DP, BMP #### [facility] [address] [place] [address] Land Department Head: Marcelino Millan MD Cholesterol in LDL [Mass/Vol] 96 mg/dL Normal 0-100 [facility] Comment on above: Result Comment: LDL Guidelines: <100 Desirable 100-129 Near to/above Desirable 130-159 Borderline >159 Undesirable Direct (measured) LDL and calculated LDL are not interchangeable tests. Performed By: #### C DP, BMP #### [facility] [address] [place] [address]. [place] [address] Land Department Head: Marcelino Millan MD Cholesterol in VLDL [Mass/Vol] 22 mg/dL Normal [facility] Comment on above: Performed By: #### C DP, BMP #### [facility] [address] [place] [address] Land Department Head: Marcelino Millan MD Cholesterol.total/Ch olesterol in HDL [Mass ratio] 8.0 {ratio} Normal [facility] Comment on above: Performed By: #### C DP, BMP #### [facility] [address] [place] [address] Land Department Head: Marcelino Millan MD Triglyceride [Mass/Vol] 111 mg/dL Normal <150 [facility] Comment on above: Result Comment: Triglyceride Guidelines: <150 Desirable 150-199 Borderline 200-499 High >499 Very high Based on AHA Guidelines for fasting triglyceride, December 2011. Performed By: #### C DP, BMP #### [facility] [address] [place] [address] Land Department Head: Marcelino Millan MD Liver Profileon 09-09-2023 Albumin [Mass/Vol] 2.6 g/dL Low 3.5-5.2 [facility] Comment on above: Performed By: #### C DP, BMP #### [facility] [place] [address] Land Department Head: Marcelino Millan MD Alkaline Phos 121 U/L High 35-104 [facility] Comment on above: Performed By: #### C DP, BMP #### [facility] [address] [place] [address] Land Department Head: Marcelino Millan MD ALT [Catalytic activity/Vol] 17 U/L Normal 5-33 [facility] Comment on above: Performed By: #### C DP, BMP #### [facility] [address] [place] [address] Land Department Head: Marcelino Millan MD AST [Catalytic activity/Vol] 16 U/L Normal <32 [facility] Comment on above: Performed By: #### C DP, BMP #### [facility] [address] [place] [address] Land Department Head: Marcelino Millan MD Bilirubin [Mass/Vol] 1.4 mg/dL High 0.3-1.2 [facility] Comment on above: Performed By: #### C DP, BMP #### [facility] [address] [place] [address] Land Department Head: Marcelino Millan MD Bilirubin, Indirect 0.6 mg/dL Normal 0.0-1.0 [facility] Comment on above: Performed By: #### C DP, BMP #### [facility] [address] [facility] [place] [address] Land Department Head: Marcelino Millan MD Bilirubin.indirect [Mass/Vol] 0.8 mg/dL High <0.3 [facility] Comment on above: Performed By: #### C DP, BMP #### [facility] [address] [place] [address]. [place] [address] Land Department Head: Marcelino Millan MD Protein [Mass/Vol] 6.1 g/dL Low 6.4-8.3 [facility] Comment on above: Performed By: #### C DP, BMP #### [facility] [place] [address] Land Department Head: Marcelino Millan MD Procalcitoninon 09-09-2023 Procalcitonin 0.81 ng/mL High 0.00-0.09 [facility] Comment on above: Result Comment: Suspected Sepsis: <0.50 ng/mL Low likelihood of sepsis. 0.50-2.00 ng/mL Increased likelihood of sepsis. Antibiotics encouraged. >2.00 ng/mL High risk of sepsis/shock. Antibiotics strongly encouraged. Suspected Lower Resp Tract Infections: <0.24 ng/mL Low likelihood of bacterial infection. >0.24 ng/mL Increased likelihood of bacterial infection. Antibiotics encouraged. With successful antibiotic therapy, PCT levels should decrease rapidly. (Half-life of 24 to 36 hours.) Procalcitonin values from samples collected within the first 6 hours of systemic infection may still be low. Retesting may be indicated. Values from day 1 and day 4 can be entered into the Change in Procalcitonin Calculator (www.lofxfk-nvc-ebtnlhkpoc.Cipio) to determine the patient's Mortality Risk Prognosis In healthy neonates, plasma Procalcitonin (PCT) concentrations increase gradually after , reaching peak values at about 24 hours of age then decrease to normal values below 0.5 ng/mL by 48-72 hours of age. Performed By: #### C DP, BMP #### [facility] [address] [place], [place] [phone] [place] Department Head: Marcelino Millan MD Sedimentation Rateon 024 Sedimentation Rate 74 mm/Hr High 0-30 [facility] Comment on above: Performed By: #### L IVP, BMP, SED, CDP, CRP, LACDS ####[facility] [address] [place], [place] [id number] Lab Director: Marcelino Millan MD#### LIPR, GLYHGB, PRCAL ####[facility] [place], [place] [id number] Lab Director: Franck Valencai MD Vancomycin,Randomon 09-09-19 24 Vancomycin 7.8 ug/mL Normal [facility] Comment on above: Result Comment: High er trough serum vancomycin concentrations of 15-20 ug/mL are recommended for complicated infections such as bacteremia, endocarditis, osteomyelitis, meningitis, and hospital acquired pneumonia. Performed By: #### V NCR #### [facility] [address] [place], [place] [id number] [place] Department Head: Marcelino Millan MD Covid-19 PCR (CVDTB)on 10-20 SARS-CoV-2 (COVID-19) RNA MAYO+probe Ql (Unsp spec) Detected Critically abnormal NOT DETECTED [facility] Comment on above: Result Comment: This test is not yet approved or cleared by the [place] FDA. When there are no FDA-approved or cleared tests available, and other criteria are met, FDA can make tests available under an emergency access mechanism called an Emergency Use Authorization (EUA). The EUA for this test is supported by the [place] of Health and Human Service's (HHS's) declaration that circumstances exist to justify the emergency use of in vitro diagnostics for the detection and/or diagnosis of the virus that causes COVID-19. This EUA will remain in effect (meaning this test can be used) for the duration of the COVID-19 declaration justifying emergency of IVDs, unless it is terminated or revoked by FDA (after which the test may no longer be used). Performed By: #### C [facility] #### [facility] [address] [place] [address] Dr. Rajendra Wall Vital Signs Date Time Vital Sign Value Performing Clinician Facility 10-20-2022 10:30-0400 Body height 167.64 cm Viraj Ardian Other [facility] Other 10-20-2022 10:30-0400 Body mass index (BMI) [Ratio] 40.22 kg/m2 Viraj Ardian Other [facility] Other 10-20-2022 10:30-0400 Body weight 113.04 kg Viraj Ball Other [facility] Other 10-20-2022 10:30-0400 Diastolic blood pressure 77 mm[Hg] Viraj Ball Other [facility] Other 10-20-2022 10:30-0400 Respiratory rate 12 /min Viraj Ball Other [facility] Other 10-20-2022 10:30-0400 Systolic blood pressure 118 mm[Hg] Viraj Ball Other [facility] Other 05-04-2022 15:30-0500 Body height 167.64 cm Viraj Ball Other [facility] Other 05-04-2022 15:30-0500 Body mass index (BMI) [Ratio] 41.09 kg/m2 Viraj Santa Other [facility] Other 05-04-2022 15:30-0500 Body weight 115.49 kg Viraj Santa Other [facility] Other 05-04-2022 15:30-0500 Diastolic blood pressure 72 mm[Hg] Viraj Santa Other [facility] Other 05-04-2022 15:30-0500 Respiratory rate 12 /min Viraj Santa Other [facility] Other 05-04-2022 15:30-0500 Systolic blood pressure 122 mm[Hg] Viraj Santa Other [facility] Other Encounters Encounter Date Encounter Type Care Provider Facility Start: 09-09-2023 End: 09-14-2023 Evaluation and management of inpatient DILNOOR [facility] Start: 10-20-2022 End: 10-20-2022 ambulatory Viraj Santa Other [facility] Other Start: 10-20-2022 Encounter for genera l adult medical examination without abnormal findings Viraj Santa [facility] Start: 10-20-2022 Periodic preventive med est patient 40-64yrs Viraj Santa [facility] Start: 10-20-2022 Telephone encounter Viraj MCKENZIE [facility] Start: 06-29-2022 End: 06-29-2022 ambulatory Viraj Santa Other [facility] Other Start: 06-29-2022 Telephone encounter Viraj MCKENZIE [facility] Start: 05-04-2022 End: 05-04-2022 ambulatory Viraj Santa Other [facility] Other Start: 05-04-2022 Office outpatient vi sit 15 minutes Viraj Santa [facility] Start: 12-17-2021 Adult health examination Viraj Santa Other [facility] Other Start: 11-05-2021 End: 11-05-[address] VIRAJ SANTA Facility:[facility]1 Payers Date Payer Category Payer Private Health Insurance [id number] 2022 Unknown [id number] 1965 Unknown [id number] 1965 Unknown [id number] 1959 Unknown [id number] Social History Date Type Detail Facility Sex Assigned At [facility] Other Evaluation note 10-20-2022 Note Date & Type Note Facility 10-20-2022 Evaluation note Encounter Date Diagnosis Assessment Notes Oct, Wellness examination (ICD-10 - Z00.00) Healthy diet and exercise. Reviewed age-appropriate preventive testing recommended. Oct, Type 2 diabetes mellitus with hyperglycemia, without long-term current use of insulin (ICD-10 - E11.65) This patient is following a comprehensive diabetic treatment plan. They are checking their feet daily for calluses and nonhealing ulcers. They are being seen for yearly dilated eye examinations. Goals: SBP less than 130, LDL less than 100, FBS less than 140, AC and A1C less than 7%. They are checking their BS daily, will which are reviewed at the office visit. Continue regular routine monitoring of A1C,] Microalbumin, Dilated eye exam and Foot exam Oct, Primary hypertension (ICD-10 - I10) This patient is instructed to consume a healthy, low-fat, low-salt diet. They are also encouraged to continue exercise to achieve/maintain a normal BMI. Oct, Morbid (severe) obesity due to excess calories (ICD-10 - E66.01) This patient has been instructed on a low-fat, high-fiber diet. They are instructed to reduce calories, portion sizes and snacks. It is recommended that they exercise for 30 minutes, 3-5 times weekly. Oct, Body mass index [BMI] 40.0-44.9, adult (ICD-10 - Z68.41) Oct, Screen for colon cancer (ICD-10 - Z12.11) Asymptomatic, low risk patient. No hx of colonoscopy Oct, Screening mammogram for breast cancer (ICD-10 - Z12.31) Hasn't had mammogram for years. SBE monthly and mammograms yearly [facility] Other Evaluation note 10-20-2022 Note Date & Type Note Facility 10-20-2022 Evaluation note Encounter Date Diagnosis Assessment Notes Oct, Type 2 diabetes mellitus with hyperglycemia , without long-term current use of insulin (ICD-10 - E11.65) [facility] Other Evaluation note 06-29-2022 Note Date & Type Note Facility 06-29-2022 Evaluation note Encounter Date Diagnosis Assessment Notes Jun, Type 2 diabetes mellitus with hyperglycemia , without long-term current use of insulin (ICD-10 - E11.65) [facility] Other Evaluation note 05-04-2022 Note Date & Type Note Facility 05-04-2022 Evaluation note Encounter Date Diagnosis Assessment Notes Apr, Essential hypertension (ICD-10 - I10) This patient is instructed to consume a healthy, low-fat, low-salt diet. They are also encouraged to continue exercise to achieve/maintain a normal BMI. Apr, Type 2 diabetes mellitus with hyperglycemia, without long-term current use of insulin (ICD-10 - E11.65) This patient is following a comprehensive diabetic treatment plan. They are checking their feet daily for calluses and nonhealing ulcers. They are being seen for yearly dilated eye examinations. Goals: SBP less than 130, LDL less than 100, FBS less than 140, AC and A1C less than 7%. They are checking their BS daily, will which are reviewed at the office visit. No benefit in obtaining A1C since BS are all > 200. Apr, Morbid obesity (ICD-10 - E66.01) This patient has been instructed on a low-fat, high-fiber diet. They are instructed to reduce calories, portion sizes and snacks. It is recommended that they exercise for 30 minutes, 3-5 times weekly. [facility] Other History general Narrative - Reported Note Date & Type Note Facility History general Narrative - Reported Type Medical History Essential hypertension Medical History Type 2 diabetes nataly itus with hyperglycemia, without long-term current use of insulin Medical History Morbid obesity Medical History COVID-19 Medical History Post-COVID syndrome Medical History Essential hypertension Medical History Controlled type 2 di abetes mellitus with hyperglycemia, without long-term current use of insulin Medical History Body mass index (BMI) of 40.0 to 49.9 Medical History COVID [facility] Other History general Narrative - Reported Note Date & Type Note Facility History general Narrative - Reported Type Medical History Essential hypertension Medical History Type 2 diabetes nataly itus with hyperglycemia, without long-term current use of insulin Medical History Morbid obesity Medical History COVID-19 Medical History Post-COVID syndrome Medical History Essential hypertension Medical History Controlled type 2 di abetes mellitus with hyperglycemia, without long-term current use of insulin Medical History Body mass index (BMI) of 40.0 to 49.9 Medical History COVID Surgical History Problem Title : Non- Contributory Past Surgical History, Problem Status : Active, Surgical History Problem Title : past surgical history reviewed, Problem Description : past surgical history reviewed, Problem Comment : reviewed - no changes required, Problem Status : Resolved, Surgical History Problem Title : surg ical procedures, hx of, Problem Description : surgical procedures, hx of, Problem Comment : none, Problem Status : Resolved, Hospitalization History see surgical history [facility] Other Summary Purpose Family History No Family History Records FoundNo Family History Records Found Advance Directives No Advanced Directives Records FoundNo Advanced Directives Records Found Additional Source Comments INFORMATION SOURCE (unrecogn ized section and content) DATE CREATED AUTHOR 11/12/2021 [facility] DATE CREATED AUTHOR AUTHOR'S ORGANIZ ATION 09/14/2023 [facility] REASON FOR VISIT (unrecogniz ed section and content) [facility] FOR RECORDS PERTAINING TO PATIENTS WHO ARE OR HAVE BEEN ENROLLED IN A CHEMICAL DEPENDENCY/SUBSTANCEABUSE PROGRAM, SOME INFORMATION MAY BE OMITTED. This clinical summary was aggregated from multiple sources. Caution should be exercised in using it in the provision of clinical care. This summary normalizes information from multiple sources, and as a consequence, information in this document may materially change the coding, format and clinical context of patient data. In addition, data may be omitted in some cases. CLINICAL DECISIONS SHOULD BE BASED ON THE PRIMARY CLINICAL RECORDS. [facility]. provides no warranty or guarantee of the accuracy or completeness of information in this document.
--- NOTE | 2023-09-18 17:56 | ED_ITS ---
HPI - Wound/Laceration General Chief Complaint: Wound/Laceration Stated Complaint: wound vac problems Time Seen by Provider: 09/18/23 17:45 Source: patient Mode of arrival: walk-in Limitations: no limitations History of Present Illness HPI narrative: 57-year-old female presented for a wound check. She had necrotizing fasciitis of her right thigh and had a wound VAC. It fell off. She was hoping to have it replaced. No fever or vomiting. She does not currently have a wound care clinic with whom she can follow-up. The one here in [place] does not do work above the knee. Related Data Home Medications ?Medication ?Instructions ?Recorded ?Confirmed glimepiride 1 mg tablet 1 mg PO DAILY 09/08/23 09/08/23 Allergies Allergy/AdvReac Type Severity Reaction Status Date / Time No Known Drug Allergies Allergy Verified 09/08/23 20:55 Review of Systems ROS Narrative A ten point review of systems is negative except as noted above. Exam Narrative Exam Narrative: Nurses note and vital signs reviewed and patient is not hypoxic. General: The patient appears well and in no apparent distress. Patient is resting comfortably on cart. Skin: Warm, dry, no pallor noted. There is no rash noted. Head: Normocephalic, atraumatic Eye: Normal conjunctiva, no drainage Ears, Nose, Mouth, and Throat: oral mucosa is moist. Nares patent. Cardiovascular: Regular Rate and Rhythm Respiratory: Patient is in no distress, no accessory muscle use Back: non-tender GI: Soft and nontender Musculoskeletal: Open wound present on the inner right upper thigh. No purulent drainage. Neurological: A&O, normal speech Psychiatric: Cooperative Constitutional Vital Signs, click to edit/add: Last Vital Signs Pulse 100 H 09/18/23 17:44 Resp 18 09/18/23 17:44 BP 145/110 H 09/18/23 17:44 Pulse Ox 99 09/18/23 17:44 O2 Del Method Room Air 09/18/23 17:44 Course Vital Signs Vital signs: Vital Signs Pulse Rate 100 H 09/18/23 17:44 Respiratory Rate 18 09/18/23 17:44 Blood Pressure 145/110 H 09/18/23 17:44 Pulse Oximetry 99 09/18/23 17:44 Oxygen Delivery Method Room Air 09/18/23 17:44 Pulse Rate 100 H 09/18/23 17:44 Respiratory Rate 18 09/18/23 17:44 Blood Pressure 145/110 H 09/18/23 17:44 Pulse Oximetry 99 09/18/23 17:44 Oxygen Delivery Method Room Air 09/18/23 17:44 MDM - Wound/Laceration MDM Narrative Medical decision making narrative: New wound VAC is being applied by nursing staff and she will speak to her surgeon to determine which wound care clinic she should follow. Differential Diagnosis Differential diagnosis: Likely other (Wound check) Discharge Plan Discharge Stand Alone Forms: Portal Instructions Chief Complaint: Wound/Laceration Clinical Impression: Wound check, abscess Patient Disposition: Home, Self-Care Time of Disposition Decision: 17:56 Condition: Good Mode of Transportation: Private Vehicle Prescriptions / Home Meds: No Action glimepiride 1 mg tablet 1 mg PO DAILY Print Language: Armenian Instructions: Negative Pressure Wound Therapy (DC) Additional Instructions: Contact your surgeon or PCP to determine which wound care center to follow-up Referrals: Viraj Martinez DO [Primary Care Provider] - 1 week
--- NOTE | 2023-09-18 18:16 | PC.NURSE ---
dressing over wound vac fell off on wound on right inner thigh
[2023-09-18 18:37] VITALS: BP 150/90; PULSE 90; O2SAT 99
== END 2023-09-18 18:39 | disposition home or self-care (01) ==
PROVIDERS: Emergency Provider Emergency Medicine; PCP Internal Medicine
DX: L02.415 Cutaneous abscess of right lower limb (principal)
CPT/HCPCS: 99282